=== PATIENT | female | born 1990 | race Caucasian/White ===

== ENCOUNTER 2017-12-31 17:11 | Emergency (ER) | payer BC ==
[2017-12-31] MEDS ORDERED: Haloperidol Lactate 5 MG/ML SDV IVPUSH ONE (18:03)
[2017-12-31] MEDS ORDERED: diphenhydrAMINE 50 MG/ML SDV IVPUSH ONE (18:03)
[2017-12-31] MEDS ORDERED: Ondansetron 4 MG/2 ML SDV IVPUSH ONE (18:03)
[2017-12-31] MEDS ORDERED: Sodium Chloride 0.9% 1,000 ML IV ONE (18:03)
[2017-12-31] MEDS ORDERED: Sodium Chloride 0.9% 10 ML Syringe FLUSH PRN (18:03)
--- NOTE | 2017-12-31 18:14 | EDM.PDOC ---
ED HPI GENERAL MEDICAL PROBLEM - General Chief Complaint: Headache Stated Complaint: MIGRAINE,DIZZY W/NAUSEA Time Seen by Provider: 12/31/17 17:40 Source of Information: Reports: Patient History Limitations: Reports: No Limitations - History of Present Illness INITIAL COMMENTS - FREE TEXT/NARRATIVE: Patient is a 27-year-old female who presents ED complaining of migraine headache with intermittent dizziness for the past hour. She has a history of migraines and notes that headache today is different from previous episodes. Patient does not recall any recent trauma to the head or activities requiring heavy exertion. Headache was sudden with onset. Pain is located bitemporal worse on the left side described as her head is in a vice. Throbbing in nature waxes wanes in intensity. States she has some pressure to the back of her head and also mild stiff neck present. She is experiencing photophobia along with some hyperacusis. She complains of some bilateral ear discomfort with onset of headache. She has been crying ever since onset and thus is quite congested. There is no vision changes, n/t to extremities, difficulty in walking, or any additional complains. She is mildly nauseated. She denies being . She has a history of anxiety and was previously medicated to which she discontinued her own accord. She did ambulate into the ED on her own accord. Headache Pain Score (Numeric/FACES): 10 - Related Data Allergies Allergy/AdvReac Type Severity Reaction Status Date / Time No Known Allergies Allergy Verified 12/31/17 17:18 Home Meds: Home Meds . [No Known Home Meds] 12/31/17 [History] Past Medical History HEENT History: Reports: None Gastrointestinal History: Reports: None Neurological History: Reports: Migraines Psychiatric History: Reports: Anxiety - Past Surgical History HEENT Surgical History: Reports: Myringotomy w Tube(s), Tonsillectomy GI Surgical History: Reports: Appendectomy Social & Family History - Family History Family Medical History: Noncontributory - Tobacco Use Smoking Status *Q: Never Smoker - Caffeine Use Caffeine Use: Reports: Coffee, Tea - Recreational Drug Use Recreational Drug Use: No ED ROS GENERAL - Review of Systems Review Of Systems: See Below Constitutional: Reports: Decreased Appetite. Denies: Fever, Chills HEENT: Reports: Other (Photophobia, hyperacusis, bilaterally ear pain) Respiratory: Reports: No Symptoms Cardiovascular: Reports: No Symptoms GI/Abdominal: Reports: Nausea. Denies: Abdominal Pain, Vomiting : Reports: No Symptoms Musculoskeletal: Reports: Neck Pain (Mild stiff neck) Skin: Reports: No Symptoms Neurological: Reports: Headache. Denies: Confusion, Dizziness, Numbness, Syncope, Tingling, Difficulty Walking, Gait Disturbance Psychiatric: Reports: Other (Tearful) - Physical Exam Exam: See Below Exam Limited By: No Limitations General Appearance: Alert, WD/WN, Other (Crying) Eye Exam: Bilateral Eye: EOMI, Nystagmus (None found), PERRL Ears: Normal External Exam, Normal Canal, Hearing Grossly Normal, Normal TMs Nose: Normal Inspection Throat/Mouth: Normal Inspection, Normal Oropharynx, Normal Voice, No Airway Compromise Head Exam: Atraumatic, Normocephalic, Other (Tenderness noted along the left side of the face and left side of the scalp with palpation.) Neck: Normal Inspection, Supple, Non-Tender, Full Range of Motion Respiratory/Chest: No Respiratory Distress, Lungs Clear, Normal Breath Sounds, No Accessory Muscle Use, Chest Non-Tender Cardiovascular: Normal Peripheral Pulses, Regular Rate, Rhythm GI/Abdominal: Normal Bowel Sounds, Soft, Non-Tender, No Organomegaly, No Distention Neuro Exam (Abbreviated): Alert, Oriented, CN II-XII Intact, Normal Cognition, No Motor/Sensory Deficits, Other (Cerebellar function intact including: Finger- nose, rapid alternating movements, and [id number]. No weakness discrepancy's to the upper and lower extremities. No facial droop, slurred speech, or difficulty swallow.) Back Exam: Normal Inspection Extremities: Normal Inspection, Normal Range of Motion, Non-Tender, Normal Capillary Refill Psychiatric: Normal Affect, Tearful Skin Exam: Warm, Dry, Intact, Normal Color, No Rash Course - Vital Signs Last Recorded V/S: Last Vital Signs Temp 98.8 F 12/31/17 17: Pulse 86 12/31/17 17: Resp 14 12/31/17 17:19 BP 147/88 H 12/31/17 17:19 Pulse Ox - Orders/Labs/Meds Labs: Laboratory Tests 12/31/17 12/31/17 12/31/17 Range/Units 18:25 18:25 18:25 WBC 9.91 (3.98-10.04) K/mm3 RBC 4.55 (3.98-5.22) M/mm3 Hgb 13.4 (11.2-15.7) gm/L Hct 41.0 (34.1-44.9) % MCV 90.1 (79.4-94.8) fl MCH 29.5 (25.6-32.2) pg MCHC 32.7 (32.2-35.5) g/dl RDW Std Deviation 41.2 (36.4-46.3) fL Plt Count 280 (182-369) K/mm3 MPV 9.2 L (9.4-12.3) fl Neut % (Auto) 67.6 (34.0-71.1) % Lymph % (Auto) 25.1 (19.3-51.7) % [place] % (Auto) 6.3 (4.7-12.5) % Eos % (Auto) 0.6 L (0.7-5.8) Baso % (Auto) 0.3 (0.1-1.2) % Neut # (Auto) 6.70 H (1.56-6.13) K/mm3 Lymph # (Auto) 2.49 (1.18-3.74) K/mm3 [place] # (Auto) 0.62 H (0.24-0.36) K/mm3 Eos # (Auto) 0.06 (0.04-0.36) K/mm3 Baso # (Auto) 0.03 (0.01-0.08) K/mm3 ESR 19 (0-20) mm/hr Sodium 140 (136-145) mEq/L Potassium 3.6 (3.5-5.1) mEq/L Chloride 105 (98-107) mEq/L Carbon Dioxide 25 (21-32) mEq/L Anion Gap 13.6 (5-15) BUN 9 (7-18) mg/dL Creatinine 0.7 (0.55-1.02) mg/dL Est Cr Clr Drug Dosing 133.73 mL/min Estimated GFR (MDRD) > 60 (>60) mL/min BUN/Creatinine Ratio 12.9 L (14-18) Glucose 80 (74-106) mg/dL Calcium 9.3 (8.5-10.1) mg/dL Total Bilirubin 0.2 (0.2-1.0) mg/dL AST 14 L (15-37) U/L ALT 22 (14-59) U/L Alkaline Phosphatase 68 (46-116) U/L C-Reactive Protein 1.9 H* (<1.0) mg/dL Total Protein 7.6 (6.4-8.2) g/dl Albumin 3.9 (3.4-5.0) g/dl Globulin 3.7 gm/dL Albumin/Globulin Ratio 1.1 (1-2) Urine HCG, Qual (NEGATIVE) 12/31/17 Range/Units 18:25 WBC (3.98-10.04) K/mm3 RBC (3.98-5.22) M/mm3 Hgb (11.2-15.7) gm/L Hct (34.1-44.9) % MCV (79.4-94.8) fl MCH (25.6-32.2) pg MCHC (32.2-35.5) g/dl RDW Std Deviation (36.4-46.3) fL Plt Count (182-369) K/mm3 MPV (9.4-12.3) fl Neut % (Auto) (34.0-71.1) % Lymph % (Auto) (19.3-51.7) % [place] % (Auto) (4.7-12.5) % Eos % (Auto) (0.7-5.8) Baso % (Auto) (0.1-1.2) % Neut # (Auto) (1.56-6.13) K/mm3 Lymph # (Auto) (1.18-3.74) K/mm3 [place] # (Auto) (0.24-0.36) K/mm3 Eos # (Auto) (0.04-0.36) K/mm3 Baso # (Auto) (0.01-0.08) K/mm3 ESR (0-20) mm/hr Sodium (136-145) mEq/L Potassium (3.5-5.1) mEq/L Chloride (98-107) mEq/L Carbon Dioxide (21-32) mEq/L Anion Gap (5-15) BUN (7-18) mg/dL Creatinine (0.55-1.02) mg/dL Est Cr Clr Drug Dosing mL/min Estimated GFR (MDRD) (>60) mL/min BUN/Creatinine Ratio (14-18) Glucose (74-106) mg/dL Calcium (8.5-10.1) mg/dL Total Bilirubin (0.2-1.0) mg/dL AST (15-37) U/L ALT (14-59) U/L Alkaline Phosphatase (46-116) U/L C-Reactive Protein (<1.0) mg/dL Total Protein (6.4-8.2) g/dl Albumin (3.4-5.0) g/dl Globulin gm/dL Albumin/Globulin Ratio (1-2) Urine HCG, Qual Negative (NEGATIVE) Meds: Medications Discontinued Medications Generic Name Dose Route Start Last Admin Trade Name Freq PRN Reason Stop Dose Admin Diphenhydramine HCl 50 mg 12/31/17 18:03 12/31/17 18:25 Benadryl IVPUSH 12/31/17 18:04 50 mg ONETIME ONE Administration Haloperidol Lactate 7.5 mg 12/31/17 18:03 12/31/17 18:26 Haldol IVPUSH 12/31/17 18:04 7.5 mg ONETIME ONE Administration Sodium Chloride 1,000 mls @ 999 mls/hr 12/31/17 18:03 12/31/17 18:23 Normal Saline IV 12/31/17 19:03 999 mls/hr ONETIME ONE Administration Ondansetron HCl 4 mg 12/31/17 18:03 12/31/17 18:23 Zofran IVPUSH 12/31/17 18:04 4 mg ONETIME ONE Administration Sodium Chloride 10 ml 12/31/17 18:03 12/31/17 18:25 Saline Flush FLUSH 10 ml ASDIRECTED PRN Administration Keep Vein Open - Re-Assessments/Exams Free Text/Narrative Re-Assessment/Exam: IV established with normal saline 1 L bolus, haloperidol 7.5 mg IVP, Benadryl 50 mg IVP and also Zofran for IVP. Initial labs and studies include CBC, chem 14 , hCG, ESR. Patient will require CT of the head since she describes as quite severe, sudden onset, with different signs and symptoms from previous headaches. Will await for hCG per patient's request. Patient did get up to go to the bathroom prior to starting the IV. She ambulated with no issues. Crying discontinued. She did not appear to be in acute distress. 12/31/17 18:59 HCG was negative. Labs reviewed: CBC and chemistry panel essentially normal. ESR was within normal limits. CRP mildly elevated at 1.9. 12/31/17 19:41 Reassessment, patient's symptoms have drastically improved with the above therapies. She has no headache at this point. CT of the head has not been obtained. She is requesting to be discharged home. I informed her unclear why she had a sudden onset of severe headache to the left side. This is not following her previous pattern of previous migraines. I did inform her although low likelihood there may be some intracranial abnormalities precipitating this headache such as a head bleed that may progressively worsen without identification. Again this is low probability largely in part all symptoms were essentially relieved with the above therapies. Patient and voice understanding and wish to be discharged home. Head CT canceled. Departure - Departure Time of Disposition: 19:43 Disposition: Home, Self-Care 01 Condition: Good Clinical Impression: Tension-type headache - Discharge Information Instructions: Recurrent Migraine Headache, [id number], General Headache Without Cause, [id number] Referrals: Angelia Love PA-C [Primary Care Provider] - Forms: ED Department Discharge Additional Instructions: Go home and find a dark room with no distractions to sleep. Again unclear what precipitated this sudden headache that was different from previous episodes. Will have you monitor for any new or worsening symptoms. Take Tylenol and ibuprofen in alternating fashion for pain. If at any time you develop any new or worsening symptoms please return to the ED for reevaluation. Again cannot clarify why this headache is different than previous migraines. It is concerning thus close monitoring is required.
== END 2017-12-31 19:55 | disposition home or self-care (01) ==
LOC: JD.ED 17:11
DX: G44.209 Tension-type headache, unspecified, not intractable (principal)
CPT/HCPCS: 36415; 80053; 81025; 85025; 85652; 86140; 96361; 96374; 96375; 99284; J1200; J1630; J2405; J7040; J7050

== ENCOUNTER 2019-01-12 10:55 | Emergency (ER) | payer BC ==
--- NOTE | 2019-01-12 11:29 | EDM.PDOC ---
ED HPI GENERAL MEDICAL PROBLEM - General Chief Complaint: Back Pain or Injury Stated Complaint: BACK PAIN Time Seen by Provider: 01/12/19 11:14 Source of Information: Reports: Patient, RN Notes Reviewed History Limitations: Reports: No Limitations - History of Present Illness INITIAL COMMENTS - FREE TEXT/NARRATIVE: Patient is a 28 year old female who presents to the ED for the evaluation of acute onset lower back pain. She states that she was at coffee break yesterday around 8 or 9 AM when she sneezed and then felt instant back pain. She notes this to be sudden with pressure and stabbing qualities. This is located in her lower back and initially radiated to her left leg, but today she states that she feels it in both of her legs. She notes the pain to be a 10/10. She denies any bowel/bladder dysfunction or loss of ROM in her legs. She did go to the chiropractor this AM and he did a TENS unit, reflexology, and ice massage with her and this did not provide much relief. She states that she has an MRI scheduled tomorrow, but cannot recall who this is with. She took 2 tabs of aleve yesterday and 2 tabs of advil this morning, both of which provided little relief. She denies any previous trauma to the area. Lower Back Pain Score (Numeric/FACES): 10 - Related Data Allergies Allergy/AdvReac Type Severity Reaction Status Date / Time No Known Allergies Allergy Verified 12/31/17 17:18 Home Meds: Home Meds Omeprazole Magnesium [Prilosec Otc] 20 mg PO DAILY 01/12/19 [History] Past Medical History HEENT History: Reports: None Gastrointestinal History: Reports: GERD Neurological History: Reports: Migraines Psychiatric History: Reports: Anxiety - Past Surgical History HEENT Surgical History: Reports: Myringotomy w Tube(s), Tonsillectomy GI Surgical History: Reports: Appendectomy, Other (See Below) Other GI Surgeries/Procedures: Barrets esophagitis Social & Family History - Family History Family Medical History: Noncontributory - Tobacco Use Smoking Status *Q: Never Smoker - Caffeine Use Caffeine Use: Reports: Coffee - Recreational Drug Use Recreational Drug Use: No ED ROS GENERAL - Review of Systems Review Of Systems: See Below Constitutional: Reports: No Symptoms HEENT: Reports: No Symptoms Respiratory: Reports: No Symptoms Cardiovascular: Reports: No Symptoms Endocrine: Reports: No Symptoms GI/Abdominal: Reports: No Symptoms : Reports: No Symptoms Musculoskeletal: Reports: Back Pain (low back pain with radiation to R/L legs), Other (muscle spasms) Skin: Reports: No Symptoms Neurological: Reports: No Symptoms Psychiatric: Reports: No Symptoms Hematologic/Lymphatic: Reports: No Symptoms Immunologic: Reports: No Symptoms ED EXAM,LOWER BACK PAIN/INJURY - Physical Exam Exam: See Below Exam Limited By: No Limitations General Appearance: Alert, WD/WN, Mild Distress (pt is laying almost supine and is tearful upon initial presentation.) Eye Exam: Bilateral Eye: EOMI, Normal Inspection, PERRL Ears: Normal External Exam Nose: Normal Inspection Throat/Mouth: Normal Inspection, Normal Lips, Normal Oropharynx, Normal Voice, No Airway Compromise Head: Atraumatic, Normocephalic Neck: Normal Inspection, Supple, Non-Tender, Full Range of Motion Respiratory/Chest: No Respiratory Distress, Lungs Clear, Normal Breath Sounds, No Accessory Muscle Use, Chest Non-Tender Cardiovascular: Normal Peripheral Pulses, Regular Rate, Rhythm, No Murmur GI/Abdominal: Normal Bowel Sounds, Soft, Non-Tender, No Distention, No Mass Back Exam: Normal Inspection, Decreased Range of Motion (exam is limited d/t pain, muscle strength is WNL), Muscle Spasm Extremities: Normal Inspection, Normal Capillary Refill, Limited Range of Motion (bilateral lower extremities, d/t pain ) Neurological: Alert, Normal Mood/Affect, Normal Dorsiflexion, Normal Plantar Flexion, No Motor/Sensory Deficits, Oriented x 3. No: Saddle Anesthesia Psychiatric: Normal Affect, Normal Mood Skin Exam: Warm, Dry, Intact, Normal Color Course - Vital Signs Last Recorded V/S: Last Vital Signs Temp Pulse 71 01/12/19 11:08 Resp 16 01/12/19 11:08 BP 143/83 H 01/12/19 11:08 Pulse Ox 98 01/12/19 11:08 - Orders/Labs/Meds Meds: Medications Discontinued Medications Generic Name Dose Route Start Last Admin Trade Name Freq PRN Reason Stop Dose Admin Ketorolac Tromethamine 30 mg 01/12/19 11:36 01/12/19 11:42 Toradol IM 01/12/19 11:37 30 mg ONETIME ONE Administration Orphenadrine Citrate 100 mg 01/12/19 11:36 01/12/19 11:42 Norflex PO 01/12/19 11:37 100 mg ONETIME ONE Administration Tramadol HCl 50 mg 01/12/19 12:39 01/12/19 12:42 Ultram PO 01/12/19 12:40 50 mg ONETIME ONE Administration - Re-Assessments/Exams Free Text/Narrative Re-Assessment/Exam: 01/12/19 11:47 Pt presents to the ED for the evaluation of acute onset lower back pain. She states that she has an MRI tomorrow, so no imaging will be done today. Have ordered 100mg Norflex and 30mg IM Toradol for initial pain management. 01/12/19 12:46 Pt was re-assessed at bedside and states that the pain is still present. I have ordered 50mg PO Tramadol to see if this doesn't provide some relief. Departure - Departure Time of Disposition: 13:48 Disposition: Home, Self-Care 01 Condition: Fair Clinical Impression: Low back pain Qualifiers: Chronicity: acute Back pain laterality: bilateral Sciatica presence: unspecified whether sciatica present Qualified Code(s): M54.5 - Low back pain - Discharge Information *PRESCRIPTION DRUG MONITORING PROGRAM REVIEWED*: No *COPY OF PRESCRIPTION DRUG MONITORING REPORT IN PATIENT JEANINE: No Instructions: Pain Medicine Instructions, [id number] Referrals: Whitney Vasquez MD [Primary Care Provider] - Forms: ED Department Discharge Additional Instructions: You have been evaluated in the ED for your lower back pain. Please use ice/heat as tolerated to the affected area. You may take tylenol 500 mg or ibuprofen 600mg q6 hrs for pain relief. Please do so until you have a tolerable level of pain with activity. Do not exceed 4000mg tylenol in one day. Do not exceed 3200mg ibuprofen in one day. Please take the tramadol every 6 hours as needed for pain that is not relieved by the tylenol/ibuprofen alone. Please take the Norflex BID for muscle spasms. Please take it easy for the next few days and please keep your appointment for your MRI tomorrow. Please return to ED if your symptoms should change or worsen.
[2019-01-12] MEDS ORDERED: Ketorolac 30 MG/ML SDV IM ONE (11:36)
[2019-01-12] MEDS ORDERED: Orphenadrine 100 MG Tab.ER PO ONE (11:36)
[2019-01-12] MEDS ORDERED: traMADol 50 MG Tab PO ONE (12:39)
== END 2019-01-12 14:05 | disposition home or self-care (01) ==
LOC: JD.ED 10:55
DX: M54.5 Low back pain (principal); K21.9 Gastro-esophageal reflux disease without esophagitis; Z79.899 Other long term (current) drug therapy
CPT/HCPCS: 96372; 99283; A9270; J1885

== ENCOUNTER 2019-09-10 14:35 | Inpatient (IN) | payer BC ==
[2019-09-10] MEDS ORDERED: Nalbuphine 10 MG/1 ML Vial IVPUSH PRN (14:50)
[2019-09-10] MEDS ORDERED: Sodium Chloride 0.9% 10 ML Syringe FLUSH PRN (14:50)
[2019-09-10] MEDS ORDERED: Lidocaine 1% 50 ML MDV INJECT ONE (14:50)
[2019-09-10] MEDS ORDERED: Ondansetron 4 MG/2 ML SDV IVPUSH PRN (14:50)
[2019-09-10] MEDS ORDERED: Oxytocin/Lactated Ringers 10 UNIT/1,000 ML BAG IV SCH ×2 (15:00)
[2019-09-10] MEDS: Lactated Ringers 1,000 ML IV SCH ×3 (15:23→23:01)
[2019-09-10] MEDS ORDERED: fentaNYL/Bupivacaine in NS PF 2 MCG-0.125% 250 ML Premix EPIDUR PRN (16:30)
[2019-09-10] MEDS ORDERED: diphenhydrAMINE 50 MG/ML SDV IVPUSH PRN (16:30)
[2019-09-10] MEDS ORDERED: fentaNYL 100 MCG/2 ML SDV EPIDUR PRN (16:30)
[2019-09-10] MEDS ORDERED: ePHEDrine 50 MG/ML SDV IVPUSH PRN (16:30)
--- NOTE | 2019-09-10 16:35 | PCM.PREANE ---
Preanesthetic Assessment - Anesthesia/Transfusion/Family Hx Anesthesia History: Prior Anesthesia Without Reaction Family History of Anesthesia Reaction: No Transfusion History: No Prior Transfusion(s) - Review of Systems General: No Symptoms Pulmonary: No Symptoms Cardiovascular: No Symptoms Gastrointestinal: No Symptoms Neurological: Headache (Migraines), Pre-Existing Deficit (Intense back pain in December, consulted a surgeon, L5-S1 Disc space narrowing, L4-5 Disc Buldge. ) Other: Reports: None - Physical Assessment Vital Signs: Last Vital Signs Temp 36.7 C 09/10/19 14:50 Pulse 99 09/10/19 14:50 Resp 16 09/10/19 14:50 BP 138/77 09/10/19 14:50 Pulse Ox 97 09/10/19 14:50 Height: 1.8 m Weight: 122.924 kg ASA Class: 2 Mental Status: Alert & Oriented x3 Airway Class: Mallampati = 2 Dentition: Reports: Normal Dentition Thyro-Mental Finger Breadths: 3 Mouth Opening Finger Breadths: 3 ROM/Head Extension: Full Lungs: Clear to Auscultation, Normal Respiratory Effort Cardiovascular: Regular Rate, Regular Rhythm - Lab Values: Laboratory Last Values WBC 11.71 K/mm3 (3.98-10.04) H 09/10/19 15:12 RBC 3.90 M/mm3 (3.98-5.22) L 09/10/19 15:12 Hgb 11.4 gm/dl (11.2-15.7) D 09/10/19 15:12 Hct 35.1 % (34.1-44.9) 09/10/19 15:12 MCV 90.0 fl (79.4-94.8) 09/10/19 15:12 MCH 29.2 pg (25.6-32.2) 09/10/19 15:12 MCHC 32.5 g/dl (32.2-35.5) 09/10/19 15:12 RDW Std Deviation 43.9 fL (36.4-46.3) 09/10/19 15:12 Plt Count 254 K/mm3 (182-369) 09/10/19 15:12 MPV 9.3 fl (9.4-12.3) L 09/10/19 15:12 - Allergies Allergies/Adverse Reactions: Allergies Allergy/AdvReac Type Severity Reaction Status Date / Time No Known Allergies Allergy Verified 12/31/17 17:18 - Acknowledgements Anesthesia Type Planned: Epidural Pt an Appropriate Candidate for the Planned Anesthesia: Yes Alternatives and Risks of Anesthesia Discussed w Pt/Guardian: Yes Pt/Guardian Understands and Agrees with Anesthesia Plan: Yes Additional Comments: Alyse does understand the risks of an epidural. She is aware she could have increased back pain from the epidural placement. Currently she has no back pain symptoms. Her back pain was triggered by a sneeze and resolved with chiropractic and physical therapy. PreAnesthesia Questionnaire HEENT History: Reports: None Gastrointestinal History: Reports: None Neurological History: Reports: Migraines Psychiatric History: Reports: Anxiety, Depression - Infectious Disease History Infectious Disease History: Reports: None - Past Surgical History HEENT Surgical History: Reports: Myringotomy w Tube(s), Tonsillectomy, Other ( See Below) Other HEENT Surgeries/Procedures: wisdom teeth extraction 2008 GI Surgical History: Reports: Appendectomy - SUBSTANCE USE Smoking Status *Q: Never Smoker Tobacco Use Within Last Twelve Months: No Second Hand Smoke Exposure: No Recreational Drug Use History: No - HOME MEDS Home Medications: Home Meds Omeprazole Magnesium [Prilosec Otc] 20 mg PO DAILY 01/12/19 [History] Orphenadrine [Norflex] 100 mg PO BID PRN #20 tab 01/12/19 [Rx] traMADol [Ultram] 50 mg PO Q6H PRN #28 tablet 01/12/19 [Rx] - CURRENT (IN HOUSE) MEDS Current Meds: Current Medications Lactated Ringer's (Ringers, Lactated) 1,000 mls @ 100 mls/hr IV ASDIRECTED RACH Last Admin: 09/10/19 15:23 Dose: 100 mls/hr Oxytocin/Lactated Ringer's (Pitocin In Lr 10 Units/1,000 Ml) 10 unit in 1,000 mls @ 500 mls/hr IV ASDIRECTED RACH; Protocol Oxytocin/Lactated Ringer's (Pitocin In Lr 10 Units/1,000 Ml) 10 unit in 1,000 mls @ 12 mls/hr IV TITRATE RACH; Protocol Last Titration: 09/10/19 15:49 Dose: 4 munits/min, 24 mls/hr Nalbuphine HCl (Nubain) 10 mg IVPUSH Q2H PRN PRN Reason: Pain Ondansetron HCl (Zofran) 4 mg IVPUSH Q4H PRN PRN Reason: Nausea/Vomiting Sodium Chloride (Saline Flush) 10 ml FLUSH ASDIRECTED PRN PRN Reason: Keep Vein Open Discontinued Medications Lidocaine HCl (Xylocaine 1%) 50 ml INJECT ONETIME ONE Stop: 09/10/19 14:51
--- NOTE | 2019-09-10 17:42 | PCM.LDHP ---
L&D History of Present Illness - General Date of Service: 09/10/19 Admit Problem/Dx: Patient Status Order with Admit Dx/Problem 09/10/19 14:50 Patient Status [ADT] Routine Admission Diagnosis/Problem Admission Diagnosis/Problem Labor established Source of Information: Patient History Limitations: Reports: No Limitations - History of Present Illness Introduction:: Patient is a 28 y/o at 37 4/7 wks gestation who presents with SROM. Early this AM thought she had a small gush of fluid, this was around 0600 or so. Afterwards has had a small persistent dribble of fluid. Seen in clinic where an amnisure was done and positive. Notes mild contractions. No other concerns - Related Data Allergies/Adverse Reactions: Allergies Allergy/AdvReac Type Severity Reaction Status Date / Time No Known Allergies Allergy Verified 09/10/19 20:08 Home Medications: Home Meds Vits #93/Iron Fum/FA [ Formula Tablet] 1 each PO DAILY [History] Past Medical History DIRECTOR ZONE History: Reports: : 1 Para: 0 Neurological History: Reports: Migraines Psychiatric History: Reports: Anxiety, Depression - Past Surgical History HEENT Surgical History: Reports: Myringotomy w Tube(s), Oral Surgery, Tonsillectomy Other HEENT Surgeries/Procedures: wisdom teeth extraction 2008 GI Surgical History: Reports: Appendectomy, Colonoscopy, EGD Social & Family History - Family History Family Medical History: Noncontributory - Tobacco Use Smoking Status *Q: Never Smoker Second Hand Smoke Exposure: No - Caffeine Use Caffeine Use: Reports: Coffee - Alcohol Use Alcohol Use History: No - Recreational Drug Use Recreational Drug Use: No H&P Review of Systems - Review of Systems: Review Of Systems: See Below General: Reports: No Symptoms Pulmonary: Reports: No Symptoms Cardiovascular: Reports: No Symptoms Gastrointestinal: Reports: No Symptoms Genitourinary: Reports: No Symptoms Musculoskeletal: Reports: No Symptoms Psychiatric: Reports: No Symptoms Neurological: Reports: No Symptoms L&D Exam - Exam Exam: See Below - Vital Signs Vital Signs: Last Vital Signs Temp 36.7 C 09/10/19 14:50 Pulse 99 09/10/19 14:50 Resp 16 09/10/19 14:50 BP 138/77 09/10/19 14:50 Pulse Ox 97 09/10/19 14:50 Weight: 122.924 kg - OB Specific Contraction Intensity: Mild Movement: Active Heart Tones: Present Heart Tones per Min: 130 Heart Rate (FHR) Variability: Moderate (6-25 bmp) Presentation: Vertex - Garcia Score Garcia Score Cervix Position: Midposition Garcia Score Consistency: Soft Garcia Score Effacement: 51-70% Garcia Score Dilation: 1-2 cm Garcia Score 's Station: -2 Garcia Score Total: 7 - Exam General: Alert, Oriented, Cooperative Lungs: Clear to Auscultation, Normal Respiratory Effort Cardiovascular: Regular Rate, Regular Rhythm GI/Abdominal Exam: Soft, Non-Tender Genitourinary: Normal external exam Extremities: Normal Inspection Skin: Warm, Dry, Intact - Patient Data Lab Results Last 24 hrs: Laboratory Results - last 24 hr 09/10/19 Range/Units 15:12 WBC 11.71 H (3.98-10.04) K/mm3 RBC 3.90 L (3.98-5.22) M/mm3 Hgb 11.4 D (11.2-15.7) gm/dl Hct 35.1 (34.1-44.9) % MCV 90.0 (79.4-94.8) fl MCH 29.2 (25.6-32.2) pg MCHC 32.5 (32.2-35.5) g/dl RDW Std Deviation 43.9 (36.4-46.3) fL Plt Count 254 (182-369) K/mm3 MPV 9.3 L (9.4-12.3) fl Result Diagrams: 09/10/19 15:12 - Problem List (1) 37 weeks gestation of SNOMED Code(s): 05998698 ICD Code: Z3A.37 - 37 WEEKS GESTATION OF Status: Acute Current Visit: Yes (2) SROM (spontaneous rupture of membranes) SNOMED Code(s): 088977271 ICD Code: [id number] - Status: Acute Current Visit: Yes (3) Abnormal quad screen SNOMED Code(s): 041981549, 854211311 ICD Code: O28.0 - ABNORMAL HEMATOLOG FINDING ON SCREENING OF MOTHER Status: Acute Current Visit: Yes Problem List Initiated/Reviewed/Updated: Yes Orders Last 24hrs: Active Orders 24 hr Category Date Time Status Patient Status [ADT] Routine ADT 09/10/19 14:50 Active Activity as Tolerated [RC] PFP Care 09/10/19 14:50 Active Communication Order [RC] ASDIRECTED Care 09/10/19 14:50 Active Notify Provider [RC] ASDIRECTED Care 09/10/19 16:30 Active Notify Provider [RC] PFP Care 09/10/19 14:50 Active Notify Provider [RC] PRN Care 09/10/19 14:50 Active Peripheral IV Care [RC] . DIRECTED Care 09/10/19 14:51 Active Vital Signs [RC] PER UNIT ROUTINE Care 09/10/19 14:50 Active Regular Diet [DIET] Diet 09/10/19 Dinner Active RAPID PLASMA REAGIN,RPR [CHEM] Routine Lab 09/10/19 15:12 Received Bupivicaine/fentaNYL/NS [fentaNYL/Bupivacaine/NS 2 MCG- Med 09/10/19 16:30 Active 0.125% 250 ML] 2 mcg EPIDUR CONTINUOUS PRN Lactated Ringers [Ringers, Lactated] 1,000 ml Med 09/10/19 15:00 Active IV ASDIRECTED Nalbuphine [Nubain] Med 09/10/19 14:50 Active 10 mg IVPUSH Q2H PRN Ondansetron [Zofran] Med 09/10/19 14:50 Active 4 mg IVPUSH Q4H PRN Oxytocin/Lactated Ringers [Pitocin in LR 10 Units/1,000 Med 09/10/19 15:00 Active ML] 10 unit in 1,000 ml IV ASDIRECTED Oxytocin/Lactated Ringers [Pitocin in LR 10 Units/1,000 Med 09/10/19 15:00 Active ML] 10 unit in 1,000 ml IV TITRATE Sodium Chloride 0.9% [Saline Flush] Med 09/10/19 14:50 Active 10 ml FLUSH ASDIRECTED PRN diphenhydrAMINE [Benadryl] Med 09/10/19 16:30 Active 25 mg IVPUSH Q6H PRN ePHEDrine [ePHEDrine sulfate] Med 09/10/19 16:30 Active 5 mg IVPUSH ASDIRECTED PRN fentaNYL [Sublimaze] Med 09/10/19 16:30 Active 100 mcg EPIDUR Q3H PRN Electronic Heart Tones Ext w TOCO [WOMSER] Oth 09/10/19 14:50 Ordered Routine Electronic Heart Tones Internal [WOMSER] Per Unit Oth 09/10/19 14:50 Ordered Routine Peripheral IV Insertion Adult [OM.PC] Routine Oth 09/10/19 14:50 Ordered Resuscitation Status Routine Resus Stat 09/10/19 14:50 Ordered Medication Orders Diphenhydramine HCl (Benadryl) 25 mg IVPUSH Q6H PRN PRN Reason: pruritis Ephedrine Sulfate (Ephedrine Sulfate) 5 mg IVPUSH ASDIRECTED PRN PRN Reason: Hypotension Fentanyl (Sublimaze) 100 mcg EPIDUR Q3H PRN PRN Reason: Pain Fentanyl/Bupivacaine HCl (Fentanyl/Bupivacaine/Ns 2 Mcg-0.125% 250 Ml) 2 mcg EPIDUR CONTINUOUS PRN PRN Reason: Pain Lactated Ringer's (Ringers, Lactated) 1,000 mls @ 100 mls/hr IV ASDIRECTED RACH Last Admin: 09/10/19 15:23 Dose: 100 mls/hr Oxytocin/Lactated Ringer's (Pitocin In Lr 10 Units/1,000 Ml) 10 unit in 1,000 mls @ 500 mls/hr IV ASDIRECTED RACH; Protocol Oxytocin/Lactated Ringer's (Pitocin In Lr 10 Units/1,000 Ml) 10 unit in 1,000 mls @ 12 mls/hr IV TITRATE RACH; Protocol Last Titration: 09/10/19 17:41 Dose: 10 munits/min, 60 mls/hr Titration: 09/10/19 17:11 Dose: 8 munits/min, 48 mls/hr Titration: 09/10/19 16:43 Dose: 6 munits/min, 36 mls/hr Titration: 09/10/19 15:49 Dose: 4 munits/min, 24 mls/hr Admin: 09/10/19 15:24 Dose: 2 munits/min, 12 mls/hr Nalbuphine HCl (Nubain) 10 mg IVPUSH Q2H PRN PRN Reason: Pain Ondansetron HCl (Zofran) 4 mg IVPUSH Q4H PRN PRN Reason: Nausea/Vomiting Sodium Chloride (Saline Flush) 10 ml FLUSH ASDIRECTED PRN PRN Reason: Keep Vein Open Assessment/Plan Comment:: * Labs * GBS negative * Start pitocin for augmentation * Pain management per patient preference * Anticipate
[2019-09-10] MEDS ORDERED: Oxytocin/Lactated Ringers 20 UNIT/1,000 ML BAG IV SCH ×2 (20:15→21:00)
--- NOTE | 2019-09-10 22:39 | PCM.PNLD ---
Labor Progress Note - VS & Meds Vital Signs: Last Vital Signs Temp 36.7 C 09/10/19 14:50 Pulse 99 09/10/19 14:50 Resp 16 09/10/19 14:50 BP 138/77 09/10/19 14:50 Pulse Ox 97 09/10/19 14:50 Active Medications: Current Medications Diphenhydramine HCl (Benadryl) 25 mg IVPUSH Q6H PRN PRN Reason: pruritis Ephedrine Sulfate (Ephedrine Sulfate) 5 mg IVPUSH ASDIRECTED PRN PRN Reason: Hypotension Fentanyl (Sublimaze) 100 mcg EPIDUR Q3H PRN PRN Reason: Pain Last Admin: 09/10/19 22:15 Dose: 100 mcg Fentanyl/Bupivacaine HCl (Fentanyl/Bupivacaine/Ns 2 Mcg-0.125% 250 Ml) 2 mcg EPIDUR CONTINUOUS PRN PRN Reason: Pain Last Admin: 09/10/19 22:15 Dose: 2 mcg Lactated Ringer's (Ringers, Lactated) 1,000 mls @ 100 mls/hr IV ASDIRECTED RACH Last Admin: 09/10/19 22:13 Dose: 999 mls/hr Oxytocin/Lactated Ringer's (Pitocin In Lr 10 Units/1,000 Ml) 10 unit in 1,000 mls @ 500 mls/hr IV ASDIRECTED RACH; Protocol Oxytocin/Lactated Ringer's (Pitocin In Lr 10 Units/1,000 Ml) 10 unit in 1,000 mls @ 12 mls/hr IV TITRATE RACH; Protocol Last Titration: 09/10/19 20:35 Dose: 20 munits/min, 120 mls/hr Oxytocin/Lactated Ringer's (Pitocin In Lr 20 Units/1,000 Ml) 20 unit in 1,000 mls @ 66 mls/hr IV TITRATE RACH; Protocol Last Admin: 09/10/19 21:12 Dose: 66 mls/hr Nalbuphine HCl (Nubain) 10 mg IVPUSH Q2H PRN PRN Reason: Pain Ondansetron HCl (Zofran) 4 mg IVPUSH Q4H PRN PRN Reason: Nausea/Vomiting Sodium Chloride (Saline Flush) 10 ml FLUSH ASDIRECTED PRN PRN Reason: Keep Vein Open Discontinued Medications Oxytocin/Lactated Ringer's (Pitocin In Lr 20 Units/1,000 Ml) 20 unit in 1,000 mls @ 66 mls/hr IV TITRATE RACH; Protocol Lidocaine HCl (Xylocaine 1%) 50 ml INJECT ONETIME ONE Stop: 09/10/19 14:51 - Uterine Contractions Uterine Monitoring Mode: External Mize Contraction Intensity: Moderate to Strong - Monitoring Monitor Mode: External Ultrasound Heart Rate (FHR) Baseline: 130 Heart Rate (FHR) Variability: Moderate (6-25 bmp) Accelerations: Present, 15x15 Decelerations: None Strip Review: Category I - Vaginal Exam Dilation (cm): 4 Effacement (Percent): 80 Station: 0 Cervical Position: Anterior - Labor Progress (Free Text) Labor Progress: Doing well. Comfortable with epidural in place. Piticon at 24. AROM of forebag done. Continue present management
[2019-09-11] MEDS ORDERED: ePHEDrine/Normal Saline 25 MG/5 ML Syringe ONE
[2019-09-11] MEDS ORDERED: Bupivacaine 0.25% 10 ML SDV ONE
[2019-09-11] MEDS: Lactated Ringers 1,000 ML IV SCH (00:43)
[2019-09-11] MEDS ORDERED: ceFAZolin 2 GM in Premix Bag 1 BAG IV STA (06:05)
[2019-09-11] MEDS ORDERED: ceFAZolin/Dextrose,Iso-Osmotic 2 GM/50 ML Duplex Bag IV ONE (06:08)
[2019-09-11] MEDS ORDERED: fentaNYL 100 MCG/2 ML SDV IVPUSH ONE ×2 (06:14)
--- NOTE | 2019-09-11 06:41 | PCM.DEL ---
L & D Note - General Info Date of Service: 09/11/19 - Delivery Note Labor: Augmented by Oxytocin Delivery Outcome: Livebirth Delivery Method: Spontaneous Vaginal Delivery-Single Delivery Mode: Vacuum Extraction Presentation: Right Occiput Anterior (CARMELLA) Nuchal Cord: None Anesthesia Type: Epidural Amniotic Fluid Description: Clear Episiotomy Type: None Laceration: 2nd Degree, Perineal, Other (hymen avulsion on left side) Suture type: Vicryl Suture size: 2-0 Placenta: Manual Removal Cord: 3 Vessels Estimated Blood Loss: 500 [place]: Bulb Syringe, Stimulated, Warmed, Warriormine Used, Warmer Used Score 1 min: 8 Score 5 min: 9 Delivery Comments (Free Text/Narrative):: The patient was pushing in the dorsal lithotomy position for about 1.5 hours. Patient , but then began to hyperventilate and in her own words "panic" . Headrick not able to push any further. Requested assistance. Maternal pushing effort was good and the pelvis was felt to be adequate for an instrument assisted delivery. The mushroom cup was placed without difficulty with care to avoid the vaginal side andrews. Applied at 0540. Subsequent vacuum assisted vaginal delivery with pushing at 0542. Total pressure applied 550 mm Hg. Total pop offs 0. Suction was removed following delivery of the head. No nuchal cord. The remainder of the infant delivered without difficulty. The umbilical cord was clamped and cut and the infant was placed on maternal abdomen. After 30 minutes of waiting the placenta had still not yet delivered. Patient given 100 mcg of fentanyl and manual exploration done. With moderate amount of difficulty placenta able to be extracted intact. Second uterine cavity evaluation afterwards showed no further residual placenta portions. Inspection of the perineum following delivery with a 2nd degree perineal laceration which was repaired with a 2-0 vicryl in the typical fashion. There was also an avulsion of the hymen noted on the patient's left. A 2-0 vicryl was used to try and reattach this tissue to the vaginal wall. Vacuum Extractor Progress Note - Alternative Labor Strategies Considered Alternative Labor Strategies Considered:: Reports: Yes Strategies Considered:: Reports: Contraction Intensity Adequate, Position Changes Used to Facilitate Rotation & Descent Indications Considered:: Reports: Yes Indications:: Reports: Shortening of 2nd Stage for Maternal Benefit Time Out:: Reports: Yes - Patient Prepared Patient Prepared:: Reports: Yes Informed Consent:: Reports: Yes Risks: Reports: Yes Risks Include:: Reports: Laceration, Shoulder Dystocia, Maternal Injury Anesthesia/Analgesia Adequate:: Reports: Yes - Probability of Success High Probability of Success:: Reports: Yes Weight Estimated:: Reports: AGA Patient Diabetic:: Reports: No Pelvis Adequate:: Reports: Yes Asynclitic:: Reports: No Station:: / outlet - Application Time Maximum Application Time & Number of Pop-Offs Predetermined:: Reports: Yes Maximum Pressure Maintained in Green [place] (cm Hg):: 550 Total Application Time (min): *max=20min: 2 Number of Times Cup Disengaged:: 0 Type of Vacuum Used:: Reports: Cup: Mushroom type Vacuum Extraction: Successful - Exit Strategy Exit strategy available:: Reports: Yes and resuscitation teams readily available:: Reports: Yes - General Info Date of Service: 09/11/19 - Patient Data Vitals - Most Recent: Last Vital Signs Temp 36.7 C 09/10/19 14:50 Pulse 99 09/10/19 14:50 Resp 16 09/10/19 14:50 BP 138/77 09/10/19 14:50 Pulse Ox 97 09/10/19 14:50 Weight - Most Recent: 122.924 kg I&O - Last 24 Hours: Intake & Output 09/10/19 09/10/19 09/11/19 14:59 22:59 06:59 Intake Total 500 3000 Balance 500 3000 - Problem List & Annotations (1) 37 weeks gestation of SNOMED Code(s): 39812551 Code(s): Z3A.37 - 37 WEEKS GESTATION OF Status: Acute Current Visit: Yes (2) SROM (spontaneous rupture of membranes) SNOMED Code(s): 495889317 Code(s): CEP2911 - Status: Acute Current Visit: Yes (3) Abnormal quad screen SNOMED Code(s): 309642414, 228298523 Code(s): O28.0 - ABNORMAL HEMATOLOG FINDING ON SCREENING OF MOTHER Status: Acute Current Visit: Yes (4) Vacuum-assisted vaginal delivery SNOMED Code(s): 15273827010746070 Code(s): Z37.9 - OUTCOME OF DELIVERY, UNSPECIFIED Status: Acute Current Visit: Yes (5) Retained placenta SNOMED Code(s): 076114475 Code(s): O73.0 - RETAINED PLACENTA WITHOUT HEMORRHAGE Status: Acute Current Visit: Yes Qualifiers: Retained placenta detail: complete placenta Qualified Code(s): O73.0 - Retained placenta without hemorrhage - Problem List Review Problem List Initiated/Reviewed/Updated: Yes - My Orders Last 24 Hours: My Active Orders 09/10/19 14:50 Patient Status [ADT] Routine Activity as Tolerated [RC] PFP Communication Order [RC] ASDIRECTED Notify Provider [RC] PFP Notify Provider [RC] PRN Nalbuphine [Nubain] 10 mg IVPUSH Q2H PRN Ondansetron [Zofran] 4 mg IVPUSH Q4H PRN Sodium Chloride 0.9% [Saline Flush] 10 ml FLUSH ASDIRECTED PRN Electronic Heart Tones Ext w TOCO [WOMSER] Routine Electronic Heart Tones Internal [WOMSER] Per Unit Routine Peripheral IV Insertion Adult [OM.PC] Routine Resuscitation Status Routine 09/10/19 14:51 Peripheral IV Care [RC] Q2HR 09/10/19 15:00 Lactated Ringers [Ringers, Lactated] 1,000 ml IV ASDIRECTED Oxytocin/Lactated Ringers [Pitocin in LR 10 Units/1,000 ML] 10 unit in 1,000 ml IV ASDIRECTED Oxytocin/Lactated Ringers [Pitocin in LR 10 Units/1,000 ML] 10 unit in 1,000 ml IV TITRATE 09/10/19 21:00 Oxytocin/Lactated Ringers [Pitocin in LR 20 Units/1,000 ML] 20 unit in 1,000 ml IV TITRATE 09/10/19 Dinner Regular Diet [DIET] - Assessment Assessment:: 28 y/o PPD#0 from [facility] at 37 5/7 wks - Plan Plan:: * Routine cares * Encourage breast feeding * Discharge home in 1-2 days
[2019-09-11] MEDS ORDERED: Acetaminophen 325 MG Tab PO PRN (07:20)
[2019-09-11] MEDS ORDERED: Benzocaine/Menthol 20%-0.5% Spray 56 GM Canister TOP PRN (07:20)
[2019-09-11] MEDS ORDERED: Docusate Sodium 100 MG Cap PO PRN (07:20)
[2019-09-11] MEDS ORDERED: Witch Hazel Medicated Pads 40/Jar TOP PRN (07:20)
[2019-09-11] MEDS: Ibuprofen 600 MG Tab PO PRN (21:06)
[2019-09-12] MEDS: Ibuprofen 600 MG Tab PO PRN ×3 (03:32→21:53)
--- NOTE | 2019-09-12 10:42 | PCM48HPAN ---
Post Anesthesia Note - EVALUATION WITHIN 48HRS OF ANESTHETIC Vital Signs in Normal Range: Yes Patient Participated in Evaluation: Yes Respiratory Function Stable: Yes Airway Patent: Yes Cardiovascular Function Stable: Yes Hydration Status Stable: Yes Pain Control Satisfactory: Yes Nausea and Vomiting Control Satisfactory: Yes Mental Status Recovered: Yes Vital Signs: Last Vital Signs Temp 37.0 C 09/12/19 03:57 Pulse 85 09/12/19 03:57 Resp 14 09/12/19 03:57 BP 131/72 09/12/19 03:57 Pulse Ox 99 09/12/19 03:57 - COMMENTS/OBSERVATIONS Free Text/Narrative:: no anesthesia complications noted
--- NOTE | 2019-09-12 11:07 | PCM.PNPP ---
- General Info Date of Service: 09/12/19 Functional Status: Reports: Pain Controlled, Tolerating Diet, Ambulating, Urinating - Review of Systems General: Reports: No Symptoms Pulmonary: Reports: No Symptoms Cardiovascular: Reports: No Symptoms Gastrointestinal: Reports: No Symptoms Genitourinary: Reports: No Symptoms Musculoskeletal: Reports: No Symptoms - Patient Data Vital Signs - Most Recent: Last Vital Signs Temp 37.0 C 09/12/19 03:57 Pulse 85 09/12/19 03:57 Resp 14 09/12/19 03:57 BP 131/72 09/12/19 03:57 Pulse Ox 99 09/12/19 03:57 Weight - Most Recent: 122.924 kg I&O - Last 24 Hours: Intake & Output 09/11/19 09/12/19 09/12/19 22:59 06:59 14:59 Intake Total 380 360 Balance 380 360 Med Orders - Current: Current Medications Acetaminophen (Tylenol) 650 mg PO Q4H PRN PRN Reason: mild pain or fever Benzocaine/Menthol (Dermoplast Pain Relief [place]) 0 gm TOP ASDIRECTED PRN PRN Reason: Perineal Comfort Measure Last Admin: 09/11/19 16:06 Dose: 1 bottle Docusate Sodium (Colace) 100 mg PO BID PRN PRN Reason: Constipation Ibuprofen (Motrin) 600 mg PO Q6H PRN PRN Reason: Mild pain or fever Last Admin: 09/12/19 03:32 Dose: 600 mg Witch Emerald (Tucks) 1 pad TOP ASDIRECTED PRN PRN Reason: Perineal Comfort Measure Last Admin: 09/11/19 16:07 Dose: 1 tub Discontinued Medications Bupivacaine HCl (Sensorcaine-Mpf 0.25%) 10 ml .ROUTE .STK-MED ONE Stop: 09/11/19 00:01 Cefazolin Sodium/Dextrose (Ancef) Confirm Administered Dose 2 gm IV .STK-MED ONE Stop: 09/11/19 06:09 Last Admin: 09/11/19 08:10 Dose: Not Given Diphenhydramine HCl (Benadryl) 25 mg IVPUSH Q6H PRN PRN Reason: pruritis Ephedrine Sulfate (Ephedrine Sulfate) 5 mg IVPUSH ASDIRECTED PRN PRN Reason: Hypotension Ephedrine Sulfate (Ephedrine In Ns) 25 mg .ROUTE .STK-MED ONE Stop: 09/11/19 00:01 Fentanyl (Sublimaze) 100 mcg EPIDUR Q3H PRN PRN Reason: Pain Last Admin: 09/10/19 22:15 Dose: 100 mcg Fentanyl (Sublimaze) 50 mcg IVPUSH ONETIME ONE Stop: 09/11/19 06:15 Last Admin: 09/11/19 08:10 Dose: Not Given Fentanyl (Sublimaze) 100 mcg IVPUSH ONETIME ONE Stop: 09/11/19 06:15 Last Admin: 09/11/19 06:14 Dose: 100 mcg Fentanyl/Bupivacaine HCl (Fentanyl/Bupivacaine/Ns 2 Mcg-0.125% 250 Ml) 2 mcg EPIDUR CONTINUOUS PRN PRN Reason: Pain Last Admin: 09/10/19 22:15 Dose: 2 mcg Lactated Ringer's (Ringers, Lactated) 1,000 mls @ 100 mls/hr IV ASDIRECTED RACH Last Admin: 09/11/19 00:43 Dose: 125 mls/hr Oxytocin/Lactated Ringer's (Pitocin In Lr 10 Units/1,000 Ml) 10 unit in 1,000 mls @ 500 mls/hr IV ASDIRECTED RACH; Protocol Last Infusion: 09/11/19 06:21 Dose: 999 mls/hr Oxytocin/Lactated Ringer's (Pitocin In Lr 10 Units/1,000 Ml) 10 unit in 1,000 mls @ 12 mls/hr IV TITRATE RACH; Protocol Last Titration: 09/10/19 20:35 Dose: 20 munits/min, 120 mls/hr Oxytocin/Lactated Ringer's (Pitocin In Lr 20 Units/1,000 Ml) 20 unit in 1,000 mls @ 66 mls/hr IV TITRATE RACH; Protocol Oxytocin/Lactated Ringer's (Pitocin In Lr 20 Units/1,000 Ml) 20 unit in 1,000 mls @ 66 mls/hr IV TITRATE RACH; Protocol Last Admin: 09/10/19 21:12 Dose: 66 mls/hr Cefazolin Sodium/Dextrose 2 gm (/ Premix) 50 mls @ 100 mls/hr IV ONETIME STA Stop: 09/11/19 06:34 Last Admin: 09/11/19 06:12 Dose: 100 mls/hr Lidocaine HCl (Xylocaine 1%) 50 ml INJECT ONETIME ONE Stop: 09/10/19 14:51 Last Admin: 09/11/19 08:09 Dose: Not Given Nalbuphine HCl (Nubain) 10 mg IVPUSH Q2H PRN PRN Reason: Pain Ondansetron HCl (Zofran) 4 mg IVPUSH Q4H PRN PRN Reason: Nausea/Vomiting Sodium Chloride (Saline Flush) 10 ml FLUSH ASDIRECTED PRN PRN Reason: Keep Vein Open - Interaction Infant Disposition, : in Room with Family Infant Interaction: Holding Infant Feeding: Attempted ; Nursed Fair/Poor Support Person: - Recovery Exam Fundal Tone: Firm Fundal Level: 1 Fingerbreadths Below Umbilicus Fundal Placement: Midline Lochia Amount: Small, Moderate Lochia Color: Rubra/Red Perineum Description: Other (see below) Other Perinuem Description: 2nd degree w/rep Episiotomy/Laceration: Approximated Bladder Status: Nonpalpable, Voiding Urinary Elimination: Not Voiding - Exam General: Alert, Oriented, Cooperative GI/Abdominal Exam: Soft, Non-Tender Extremities: Normal Inspection Skin: Warm, Dry, Intact - Problem List & Annotations (1) 37 weeks gestation of SNOMED Code(s): 35997834 Code(s): Z3A.37 - 37 WEEKS GESTATION OF Status: Acute Current Visit: Yes (2) SROM (spontaneous rupture of membranes) SNOMED Code(s): 455786303 Code(s): GKR3906 - Status: Acute Current Visit: Yes (3) Abnormal quad screen SNOMED Code(s): 164415934, 284581706 Code(s): O28.0 - ABNORMAL HEMATOLOG FINDING ON SCREENING OF MOTHER Status: Acute Current Visit: Yes (4) Vacuum-assisted vaginal delivery SNOMED Code(s): 65730685779757982 Code(s): Z37.9 - OUTCOME OF DELIVERY, UNSPECIFIED Status: Acute Current Visit: Yes (5) Retained placenta SNOMED Code(s): 286089597 Code(s): O73.0 - RETAINED PLACENTA WITHOUT HEMORRHAGE Status: Acute Current Visit: Yes Qualifiers: Retained placenta detail: complete placenta Qualified Code(s): O73.0 - Retained placenta without hemorrhage - Problem List Review Problem List Initiated/Reviewed/Updated: Yes - My Orders Last 24 Hours: My Active Orders 09/12/19 07:20 Heat Therapy [OM.PC] PRN - Assessment Assessment:: 28 y/o PPD#1 from [facility] at 37 5/7 wks - Plan Plan:: * Routine cares * Encourage breast feeding * Continue to monitor bleeding closely, doing well so far * Discharge home tomorrow
--- NOTE | 2019-09-13 08:22 | PCM.DCSUM1 ---
Discharge Summary - Discharge Data Discharge Date: 09/13/19 Discharge Disposition: Home, Self-Care 01 Condition: Good - Referral to Home Health Primary Care Physician: Whitney Vasquez MD - Discharge Diagnosis/Problem(s) (1) 37 weeks gestation of SNOMED Code(s): 85922918 ICD Code: Z3A.37 - 37 WEEKS GESTATION OF Status: Acute Current Visit: Yes (2) SROM (spontaneous rupture of membranes) SNOMED Code(s): 178410819 ICD Code: DLA4175 - Status: Acute Current Visit: Yes (3) Abnormal quad screen SNOMED Code(s): 091762868, 926040630 ICD Code: O28.0 - ABNORMAL HEMATOLOG FINDING ON SCREENING OF MOTHER Status: Acute Current Visit: Yes (4) Vacuum-assisted vaginal delivery SNOMED Code(s): 91569923141787569 ICD Code: Z37.9 - OUTCOME OF DELIVERY, UNSPECIFIED Status: Acute Current Visit: Yes (5) Retained placenta SNOMED Code(s): 667843313 ICD Code: O73.0 - RETAINED PLACENTA WITHOUT HEMORRHAGE Status: Acute Current Visit: Yes Qualifiers: Retained placenta detail: complete placenta Qualified Code(s): O73.0 - Retained placenta without hemorrhage - Patient Summary/Data Complications: None Consults: None Recommended Follow-up Testing/Procedures: Follow up in 3 weeks for check Hospital Course: 28 y/o presented at 37 4/7 wks with SROM. She was started on pitocin for augmentation. She progressed well to complete dilation. During pushing she did become tired and also experienced a fair amount of pain. For this reason underwent an VAVD. This was uncomplicated. See delivery note. she did well and was discharged home on PPD#2 - Patient Instructions Diet: Regular Diet as Tolerated Activity: As Tolerated Activity, Other: Pelvic rest for 6 weeks Driving: May Drive Today Showering/Bathing: May Shower Showering/Bathing, Other: May Bathe Notify Provider of: Fever, Increased Pain, Swelling and Redness, Drainage, Nausea and/or Vomiting - Discharge Plan *PRESCRIPTION DRUG MONITORING PROGRAM REVIEWED*: Not Applicable *COPY OF PRESCRIPTION DRUG MONITORING REPORT IN PATIENT JEANINE: Not Applicable Home Medications: Home Meds Vits #93/Iron Fum/FA [ Formula Tablet] 1 each PO DAILY [History] Docusate Sodium [Colace] 100 mg PO BID PRN cap 09/13/19 [Rx] Ibuprofen [Motrin] 600 mg PO Q6H PRN tablet 09/13/19 [Rx] Referrals: Nga Juarez MD [Physician] - (3 weeks for check ) - Discharge Summary/Plan Comment DC Time >30 min.: No - Patient Data Vitals - Most Recent: Last Vital Signs Temp 36.2 C 09/13/19 03:24 Pulse 88 09/13/19 03:24 Resp 14 09/13/19 03:24 BP 127/65 09/13/19 03:24 Pulse Ox 98 09/13/19 03:24 Weight - Most Recent: 122.924 kg I&O - Last 24 hours: Intake & Output 09/12/19 09/13/19 09/13/19 22:59 06:59 14:59 Intake Total 360 Balance 360 Med Orders - Current: Current Medications Acetaminophen (Tylenol) 650 mg PO Q4H PRN PRN Reason: mild pain or fever Benzocaine/Menthol (Dermoplast Pain Relief [place]) 0 gm TOP ASDIRECTED PRN PRN Reason: Perineal Comfort Measure Last Admin: 09/11/19 16:06 Dose: 1 bottle Docusate Sodium (Colace) 100 mg PO BID PRN PRN Reason: Constipation Ibuprofen (Motrin) 600 mg PO Q6H PRN PRN Reason: Mild pain or fever Last Admin: 09/12/19 21:53 Dose: 600 mg Witch Emerald (Tucks) 1 pad TOP ASDIRECTED PRN PRN Reason: Perineal Comfort Measure Last Admin: 09/11/19 16:07 Dose: 1 tub Discontinued Medications Bupivacaine HCl (Sensorcaine-Mpf 0.25%) 10 ml .ROUTE .STK-MED ONE Stop: 09/11/19 00:01 Cefazolin Sodium/Dextrose (Ancef) Confirm Administered Dose 2 gm IV .STK-MED ONE Stop: 09/11/19 06:09 Last Admin: 09/11/19 08:10 Dose: Not Given Diphenhydramine HCl (Benadryl) 25 mg IVPUSH Q6H PRN PRN Reason: pruritis Ephedrine Sulfate (Ephedrine Sulfate) 5 mg IVPUSH ASDIRECTED PRN PRN Reason: Hypotension Ephedrine Sulfate (Ephedrine In Ns) 25 mg .ROUTE .STK-MED ONE Stop: 09/11/19 00:01 Fentanyl (Sublimaze) 100 mcg EPIDUR Q3H PRN PRN Reason: Pain Last Admin: 09/10/19 22:15 Dose: 100 mcg Fentanyl (Sublimaze) 50 mcg IVPUSH ONETIME ONE Stop: 09/11/19 06:15 Last Admin: 09/11/19 08:10 Dose: Not Given Fentanyl (Sublimaze) 100 mcg IVPUSH ONETIME ONE Stop: 09/11/19 06:15 Last Admin: 09/11/19 06:14 Dose: 100 mcg Fentanyl/Bupivacaine HCl (Fentanyl/Bupivacaine/Ns 2 Mcg-0.125% 250 Ml) 2 mcg EPIDUR CONTINUOUS PRN PRN Reason: Pain Last Admin: 09/10/19 22:15 Dose: 2 mcg Lactated Ringer's (Ringers, Lactated) 1,000 mls @ 100 mls/hr IV ASDIRECTED RACH Last Admin: 09/11/19 00:43 Dose: 125 mls/hr Oxytocin/Lactated Ringer's (Pitocin In Lr 10 Units/1,000 Ml) 10 unit in 1,000 mls @ 500 mls/hr IV ASDIRECTED RACH; Protocol Last Infusion: 09/11/19 06:21 Dose: 999 mls/hr Oxytocin/Lactated Ringer's (Pitocin In Lr 10 Units/1,000 Ml) 10 unit in 1,000 mls @ 12 mls/hr IV TITRATE RACH; Protocol Last Titration: 09/10/19 20:35 Dose: 20 munits/min, 120 mls/hr Oxytocin/Lactated Ringer's (Pitocin In Lr 20 Units/1,000 Ml) 20 unit in 1,000 mls @ 66 mls/hr IV TITRATE RACH; Protocol Oxytocin/Lactated Ringer's (Pitocin In Lr 20 Units/1,000 Ml) 20 unit in 1,000 mls @ 66 mls/hr IV TITRATE RACH; Protocol Last Admin: 09/10/19 21:12 Dose: 66 mls/hr Cefazolin Sodium/Dextrose 2 gm (/ Premix) 50 mls @ 100 mls/hr IV ONETIME STA Stop: 09/11/19 06:34 Last Admin: 09/11/19 06:12 Dose: 100 mls/hr Lidocaine HCl (Xylocaine 1%) 50 ml INJECT ONETIME ONE Stop: 09/10/19 14:51 Last Admin: 09/11/19 08:09 Dose: Not Given Nalbuphine HCl (Nubain) 10 mg IVPUSH Q2H PRN PRN Reason: Pain Ondansetron HCl (Zofran) 4 mg IVPUSH Q4H PRN PRN Reason: Nausea/Vomiting Sodium Chloride (Saline Flush) 10 ml FLUSH ASDIRECTED PRN PRN Reason: Keep Vein Open
[2019-09-13] MEDS: Ibuprofen 600 MG Tab PO PRN (13:21)
== END 2019-09-13 15:00 | disposition home or self-care (01) | DRG 560 ==
LOC: JD.OBCHECK 14:35 → JD.OB 14:50 → JD.OBCHECK 14:50 → JD.OB 15:00 → OBSVTOIN 09-11 05:42 → JD.OB 09-11 05:43
PROVIDERS: ADMIT Obstetrics & Gynecology; ATTEND Obstetrics & Gynecology
PROC: 0KQM0ZZ Repair Perineum Muscle, Open Approach (ICD-10-PCS; principal; 2019-09-11)
PROC: 10D07Z6 Extraction of Products of Conception, Vacuum, Via Natural or Artificial Opening (ICD-10-PCS; 2019-09-11)
DX: O70.1 Second degree perineal laceration during delivery (principal); O73.0 Retained placenta without hemorrhage; Z3A.37 37 weeks gestation of pregnancy; Z37.0 Single live birth
CPT/HCPCS: 01967; 36415; 51702; 59025; 59409; 85027; 86592; A9270-GY; J0690; J2590; J3010; J3490; J7050; J7120

== ENCOUNTER 2019-09-15 17:02 | Emergency (ER) | payer BC ==
--- NOTE | 2019-09-15 17:17 | EDM.PDOC ---
ED HPI GENERAL MEDICAL PROBLEM - General Chief Complaint: Lower Extremity Injury/Pain Stated Complaint: ALL OVER PAIN-LEGS SWOLLEN/POST Time Seen by Provider: 09/15/19 17:16 - History of Present Illness INITIAL COMMENTS - FREE TEXT/NARRATIVE: 28-year-old female presents emergency room 4 days with swelling and been achy all over. The patient has had a lot of swelling in this seems to be getting worse after her delivery 4 days ago. For the most part the delivery was uneventful. The patient is very anxious and tearful at this time. She is shaky not had any fevers or chills. 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: Neurological History: Reports: Migraines Psychiatric History: Reports: Anxiety, Depression - Infectious Disease History Infectious Disease History: Reports: None - Past Surgical History HEENT Surgical History: Reports: Myringotomy w Tube(s), Oral Surgery, Tonsillectomy Other HEENT Surgeries/Procedures: wisdom teeth extraction 2008 GI Surgical History: Reports: Appendectomy, Colonoscopy, EGD Social & Family History - Family History Family Medical History: Noncontributory - Caffeine Use Caffeine Use: Reports: Coffee Review of Systems - Review of Systems Review Of Systems: See Below Constitutional: Reports: No Symptoms Eyes: Reports: No Symptoms Ears: Reports: No Symptoms Nose: Reports: No Symptoms Mouth/Throat: Reports: No Symptoms Respiratory: Reports: No Symptoms Cardiovascular: Reports: No Symptoms GI/Abdominal: Denies: Abdominal Pain, Constipation, Diarrhea, Nausea, Vomiting Genitourinary: Reports: Vaginal Bleeding (Normal and expected) Musculoskeletal: Reports: Other (She is achy all over) Skin: Reports: No Symptoms Neurological: Reports: No Symptoms Psychiatric: Reports: Depression, Anxiety. Denies: Hallucinations, Suicidal Ideation, Homicidal Ideation ED EXAM, GENERAL - Physical Exam Exam: See Below Exam Limited By: No Limitations General Appearance: Alert, Other (She appears anxious her initial blood pressure was elevated but subsequent blood pressures were normal and reassuring) Head: Atraumatic, Normocephalic Neck: Normal Inspection, Supple, Non-Tender, Full Range of Motion. No: Lymphadenopathy (L), Lymphadenopathy (R) Respiratory/Chest: No Respiratory Distress, Lungs Clear, Normal Breath Sounds Cardiovascular: Regular Rate, Rhythm, No Murmur GI/Abdominal: Normal Bowel Sounds, Soft, Other (Minimal discomfort over the uterus) Back Exam: Normal Inspection. No: CVA Tenderness (L), CVA Tenderness (R) Extremities: Other (She's got edema noted in both lower extremities is appears to be normal fairly equal in both legs no significant redness or warmth to this she has edema elsewhere) Neurological: Alert, Oriented, Normal Cognition, Normal Reflexes, Other (Is anxious ) Course - Vital Signs Last Recorded V/S: Last Vital Signs Temp 36.8 C 09/15/19 19:17 Pulse 79 09/15/19 19:17 Resp 18 09/15/19 19:17 BP 120/81 09/15/19 19:17 Pulse Ox 98 09/15/19 19:17 - Orders/Labs/Meds Orders: Active Orders 24 hr Category Date Time Status CULTURE URINE [RM] Stat Lab 09/15/19 18:37 Stop Req Labs: Laboratory Tests 09/15/19 09/15/19 09/15/19 Range/Units 18:15 18:15 18:39 WBC 12.57 H (3.98-10.04) K/mm3 RBC 3.80 L (3.98-5.22) M/mm3 Hgb 11.1 L (11.2-15.7) gm/dl Hct 34.8 (34.1-44.9) % MCV 91.6 (79.4-94.8) fl MCH 29.2 (25.6-32.2) pg MCHC 31.9 L (32.2-35.5) g/dl RDW Std Deviation 44.7 (36.4-46.3) fL Plt Count 316 (182-369) K/mm3 MPV 8.9 L (9.4-12.3) fl Neutrophils % (Manual) 75 H (40-60) % Band Neutrophils % 1 (0-10) % Lymphocytes % (Manual) 18 L (20-40) % Atypical Lymphs % 0 % Monocytes % (Manual) 3 (2-10) % Eosinophils % (Manual) 2 (0.7-5.8) % Basophils % (Manual) 1 (0.1-1.2) Platelet Estimate Adequate RBC Morph Comment Normal Sodium 141 (136-145) mEq/L Potassium 3.8 (3.5-5.1) mEq/L Chloride 106 (98-107) mEq/L Carbon Dioxide 26 (21-32) mEq/L Anion Gap 12.8 (5-15) BUN 10 (7-18) mg/dL Creatinine 0.6 (0.55-1.02) mg/dL Est Cr Clr Drug Dosing 154.63 mL/min Estimated GFR (MDRD) > 60 (>60) mL/min BUN/Creatinine Ratio 16.7 (14-18) Glucose 84 (74-106) mg/dL Calcium 9.4 (8.5-10.1) mg/dL Total Bilirubin 0.2 (0.2-1.0) mg/dL AST 23 (15-37) U/L ALT 32 (14-59) U/L Alkaline Phosphatase 120 H (46-116) U/L Total Protein 6.6 (6.4-8.2) g/dl Albumin 3.0 L (3.4-5.0) g/dl Globulin 3.6 gm/dL Albumin/Globulin Ratio 0.8 L (1-2) Urine Color Yellow (Yellow) Urine Appearance Slt cloudy H (Clear) Urine pH 6.5 (5.0-8.0) Ur Specific [place] 1.020 (1.005-1.030) Urine Protein 1+ H (Negative) Urine Glucose (UA) Negative (Negative) Urine Ketones 1+ H (Negative) Urine Occult Blood 2+ H (Negative) Urine Nitrite Negative (Negative) Urine Bilirubin Negative (Negative) Urine Urobilinogen 0.2 (0.2-1.0) Ur Leukocyte Esterase 2+ H (Negative) Urine RBC 30-40 H (0-5) /hpf Urine WBC 40-50 H (0-5) /hpf Ur Squamous Epith Cells 5-10 H (0-5) /hpf Urine Bacteria Few (FEW) /hpf Urine Mucus Moderate H (FEW) /hpf Meds: Medications Discontinued Medications Generic Name Dose Route Start Last Admin Trade Name Oscar PRN Reason Stop Dose Admin Lorazepam 1 mg 09/15/19 18:03 09/15/19 18:17 Ativan PO 09/15/19 18:04 1 mg ONETIME ONE Administration - Re-Assessments/Exams Free Text/Narrative Re-Assessment/Exam: 09/15/19 19:[address] Juarez we checked some basic line labs and gave her a milligram of Ativan the Ativan helped out quite a bit she was less tearful but still tearful. Her labs were fairly assuring urinalysis was too contaminated to do much with. After the Ativan her shaking stopped she was much calmer still a little tearful at times but not like she was on admission. Her vital signs remained stable most recent blood pressure is 120/81 pulse 79 O2 saturation 98% on room air temp 98.3. Dr. Juarez will see the patient tomorrow morning in the clinic. Departure - Departure Time of Disposition: 19:34 Disposition: Home, Self-Care 01 Clinical Impression: edema, anxiety - Discharge Information Referrals: Nga Juarez MD [Primary Care Provider] - Forms: ED Department Discharge Additional Instructions: Return to the emergency room with any questions problems or worsening symptoms. Follow-up with Dr. Juarez tomorrow morning as we discussed. It is my understanding the clinic will contact you in the morning to get you in in the morning - My Orders Last 24 Hours: My Active Orders 09/15/19 18:37 CULTURE URINE [RM] Stat - Assessment/Plan Last 24 Hours: My Active Orders 09/15/19 18:37 CULTURE URINE [RM] Stat
[2019-09-15] MEDS ORDERED: LORazepam 1 MG Tab PO ONE (18:03)
== END 2019-09-15 19:50 | disposition home or self-care (01) ==
LOC: JD.ED 17:02
DX: O99.89 Other specified diseases and conditions complicating pregnancy, childbirth and the puerperium (principal); R60.9 Edema, unspecified; O99.345 Other mental disorders complicating the puerperium; F41.9 Anxiety disorder, unspecified
CPT/HCPCS: 36415; 80053; 81001; 85007; 85027; 99283; A9270; 87086

== ENCOUNTER 2021-05-16 07:26 | Inpatient (IN) | payer BC ==
[~2021-05-16 07:26] MED LIST: Bupivacaine 0.25% 10 ML SDV ONE
[2021-05-16] MEDS ORDERED: Ondansetron 4 MG/2 ML SDV IVPUSH PRN (07:27)
[2021-05-16] MEDS ORDERED: Sodium Chloride 0.9% 10 ML Syringe FLUSH PRN (07:27)
[2021-05-16] MEDS ORDERED: Nalbuphine 10 MG/1 ML Vial IVPUSH PRN (07:27)
[2021-05-16] MEDS ORDERED: Oxytocin/Lactated Ringers 10 UNIT/1,000 ML BAG IV SCH ×2 (07:30)
--- NOTE | 2021-05-16 07:30 | PCM.LDHP ---
L&D History of Present Illness - General Date of Service: 05/16/21 Admit Problem/Dx: Patient Status Order with Admit Dx/Problem 05/16/21 07:27 Patient Status [ADT] Routine Admission Diagnosis/Problem Admission Diagnosis/Problem Normal in third trimester Source of Information: Patient History Limitations: Reports: No Limitations - History of Present Illness Introduction:: Patient is 30 y/o at 39 0/7 wks who presents for elective IOL. Doing well today. No specific concerns. 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: : 2 Para: 1 LMP (Approximate): Musculoskeletal History: Reports: Arthritis Neurological History: Reports: Migraines Psychiatric History: Reports: Anxiety Endocrine/Metabolic History: Reports: Obesity/BMI 30+ - Past Surgical History HEENT Surgical History: Reports: Myringotomy w Tube(s), Oral Surgery, Tonsillectomy Other HEENT Surgeries/Procedures: wisdom teeth extraction 2008 GI Surgical History: Reports: Appendectomy, Colonoscopy, EGD Social & Family History - Family History Family Medical History: No Pertinent Family History - Tobacco Use Tobacco Use Status *Q: Never Tobacco User - Caffeine Use Caffeine Use: Reports: Coffee - Alcohol Use Alcohol Use History: No - Recreational Drug Use Recreational Drug Use: No H&P Review of Systems - Review of Systems: Review Of Systems: See Below General: Reports: No Symptoms Pulmonary: Reports: No Symptoms Cardiovascular: Reports: No Symptoms Gastrointestinal: Reports: No Symptoms Genitourinary: Reports: No Symptoms Musculoskeletal: Reports: No Symptoms Psychiatric: Reports: No Symptoms Neurological: Reports: No Symptoms L&D Exam - Exam Exam: See Below - OB Specific Contraction Intensity: Irritability Movement: Active Heart Tones: Present Heart Tones per Min: 125 Heart Rate (FHR) Variability: Moderate (6-25 bmp) Presentation: Vertex - Garcia Score Garcia Score Cervix Position: Midposition Garcia Score Consistency: Soft Garcia Score Effacement: 51-70% Garcia Score Dilation: 1-2 cm Garcia Score Infant's Station: -2 Garcia Score Total: 7 - Exam General: Alert, Oriented, Cooperative Lungs: Clear to Auscultation, Normal Respiratory Effort Cardiovascular: Regular Rate, Regular Rhythm GI/Abdominal Exam: Soft, Non-Tender Genitourinary: Normal external exam Extremities: Normal Inspection Skin: Warm, Dry, Intact - Patient Data Result Diagrams: 05/16/21 07:43 - Problem List (1) 39 weeks gestation of SNOMED Code(s): 07018146 ICD Code: Z3A.39 - 39 WEEKS GESTATION OF Status: Acute Current Visit: Yes (2) Pyelectasis of fetus on ultrasound SNOMED Code(s): 208688425 ICD Code: O35.8XX0 - MATERNAL CARE FOR OTH ABNORMALITY AND DAMAGE, UNSP Status: Acute Current Visit: Yes Problem List Initiated/Reviewed/Updated: Yes Orders Last 24hrs: Active Orders 24 hr Category Date Time Status Patient Status [ADT] Routine ADT 05/16/21 07:27 Ordered Communication Order [RC] ASDIRECTED Care 05/16/21 07:27 Ordered Communication Order [RC] ASDIRECTED Care 05/16/21 07:27 Ordered Communication Order [RC] ASDIRECTED Care 05/16/21 07:27 Ordered Heart Tones [RC] ASDIRECTED Care 05/16/21 07:27 Ordered Non Stress Test [RC] PER UNIT ROUTINE Care 05/16/21 07:27 Ordered Notify Provider [RC] ASDIRECTED Care 05/16/21 07:27 Ordered Notify Provider [RC] PRN Care 05/16/21 07:27 Ordered Peripheral IV Care [RC] . DIRECTED Care 05/16/21 07:27 Ordered Up ad Evon [RC] ASDIRECTED Care 05/16/21 07:27 Ordered Vaginal Exam [RC] ASDIRECTED Care 05/16/21 07:27 Ordered Vital Signs [RC] ASDIRECTED Care 05/16/21 07:27 Ordered Regular Diet [DIET] Diet 05/16/21 Breakfast Ordered CBC W/O DIFF,HEMOGRAM [HEME] Routine Lab 05/16/21 07:27 Ordered HEP C VIRUS AB [REF] Routine Lab 05/16/21 07:27 Ordered RAPID PLASMA REAGIN,RPR [CHEM] Routine Lab 05/16/21 07:27 Ordered TYPE AND SCREEN [BBK] Routine Lab 05/16/21 07:27 Ordered Lactated Ringers [Ringers, Lactated] 1,000 ml Med 05/16/21 07:30 Ordered IV ASDIRECTED Nalbuphine [Nubain] Med 05/16/21 07:27 Ordered 10 mg IVPUSH Q2H PRN Ondansetron [Zofran] Med 05/16/21 07:27 Ordered 4 mg IVPUSH Q4H PRN Oxytocin/Lactated Ringers [Pitocin in LR 10 Units/1,000 Med 05/16/21 07:30 Ordered ML] 10 unit in 1,000 ml IV .CONTINUOUS Oxytocin/Lactated Ringers [Pitocin in LR 10 Units/1,000 Med 05/16/21 07:30 Ordered ML] 10 unit in 1,000 ml IV TITRATE Sodium Chloride 0.9% [Saline Flush] Med 05/16/21 07:27 Ordered 10 ml FLUSH ASDIRECTED PRN Electronic Heart Tones Ext w TOCO [WOMSER] Oth 05/16/21 07:27 Ordered Routine Electronic Heart Tones Internal [WOMSER] Per Unit Ot 05/16/21 07:27 Ordered Routine Peripheral IV Insertion Adult [OM.PC] Routine Oth 05/16/21 07:27 Ordered Resuscitation Status Routine Resus Stat 05/16/21 07:27 Ordered Assessment/Plan Comment:: * Labs to be done * GBS negative * Pitocin / AROM for IOL * Pain management per patient preference * Anticipate * Regular christian science healer, Dr. Stewart, already informed of pyelectasis. Will notify etch operator semiconductor wafers physician as well
[2021-05-16] MEDS: Lactated Ringers 1,000 ML IV SCH ×3 (09:11→17:30)
[2021-05-16] MEDS ORDERED: fentaNYL 100 MCG/2 ML SDV EPIDUR PRN (09:43)
[2021-05-16] MEDS ORDERED: Bupivacaine/fentaNYL/NS 100 ML Bag EPIDUR PRN (09:43)
[2021-05-16] MEDS ORDERED: diphenhydrAMINE 50 MG/ML SDV IVPUSH PRN (09:43)
--- NOTE | 2021-05-16 16:20 | PCM.PREANE ---
Preanesthetic Assessment - Procedure Proposed Procedure: Labor Epidural - Anesthesia/Transfusion/Family Hx Anesthesia History: Prior Anesthesia Without Reaction Family History of Anesthesia Reaction: No Transfusion History: No Prior Transfusion(s) - Review of Systems General: No Symptoms Pulmonary: No Symptoms Cardiovascular: No Symptoms Gastrointestinal: Other (GERD) Neurological: Headache (Migraines), Pre-Existing Deficit (Chronic back pain, rheumatoid arthritis, previous MRI of back disc buldge at L4-5. Does see chiropractor as needed. ) Other: Reports: Depression, Anxiety - Physical Assessment Vital Signs: Last Vital Signs Temp 36.9 C 05/16/21 07:27 Pulse 97 05/16/21 09:02 Resp 15 05/16/21 07:27 BP 120/79 05/16/21 09:02 Pulse Ox Height: 1.83 m Weight: 121.563 kg ASA Class: 2 Mental Status: Alert & Oriented x3 Airway Class: Mallampati = 2 Dentition: Reports: Normal Dentition Thyro-Mental Finger Breadths: 3 Mouth Opening Finger Breadths: 3 ROM/Head Extension: Full Lungs: Clear to Auscultation, Normal Respiratory Effort Cardiovascular: Regular Rate, Regular Rhythm - Lab Values: Laboratory Last Values WBC 8.20 K/mm3 (3.98-10.04) 05/16/21 07:43 RBC 4.03 M/mm3 (3.98-5.22) 05/16/21 07:43 Hgb 11.9 gm/dl (11.2-15.7) 05/16/21 07:43 Hct 36.9 % (34.1-44.9) 05/16/21 07:43 MCV 91.6 fl (79.4-94.8) 05/16/21 07:43 MCH 29.5 pg (25.6-32.2) 05/16/21 07:43 MCHC 32.2 g/dl (32.2-35.5) 05/16/21 07:43 RDW Std Deviation 44.8 fL (36.4-46.3) 05/16/21 07:43 Plt Count 225 K/mm3 (182-369) D 05/16/21 07:43 MPV 9.4 fl (9.4-12.3) 05/16/21 07:43 SARS-CoV-2 RNA (YISSEL) Negative (NEGATIVE) 05/16/21 08:30 Blood Type AB POSITIVE 05/16/21 07:43 Gel Antibody Screen Negative 05/16/21 07:43 - Allergies Allergies/Adverse Reactions: Allergies Allergy/AdvReac Type Severity Reaction Status Date / Time No Known Allergies Allergy Verified 09/15/19 17:15 - Acknowledgements Anesthesia Type Planned: Epidural Pt an Appropriate Candidate for the Planned Anesthesia: Yes Alternatives and Risks of Anesthesia Discussed w Pt/Guardian: Yes Pt/Guardian Understands and Agrees with Anesthesia Plan: Yes Additional Comments: Alyse has had a previous epidural without issue that worked well for her labor pain. She does understand and epidural could aggravate her back pain and wishes to proceed. 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: Musculoskeletal History: Reports: Arthritis Neurological History: Reports: Migraines Psychiatric History: Reports: Anxiety Endocrine/Metabolic History: Reports: Obesity/BMI 30+ Hematologic History: Reports: None Immunologic History: Reports: None Oncologic (Cancer) History: Reports: None Dermatologic History: Reports: None - Infectious Disease History Infectious Disease History: Reports: None, Other (See Below) Other Infectious Disease History: + covid August 2020 with symptos, + covid Dec 2020 without smptoms - Past Surgical History Head Surgeries/Procedures: Reports: None HEENT Surgical History: Reports: Myringotomy w Tube(s), Oral Surgery, Tonsillectomy Other HEENT Surgeries/Procedures: wisdom teeth extraction 2008 GI Surgical History: Reports: Appendectomy, Colonoscopy, EGD - SUBSTANCE USE Tobacco Use Status *Q: Never Tobacco User Tobacco Use Within Last Twelve Months: Smokeless Tobacco Second Hand Smoke Exposure: No Recreational Drug Use History: No - HOME MEDS Home Medications: Home Meds Vits #93/Iron Fum/FA [ Formula Tablet] 1 each PO DAILY 09/10/19 [History] Docusate Sodium [Colace] 100 mg PO BID PRN cap 09/13/19 [Rx] Hydroxychloroquine [Plaquenil] 200 mg PO DAILY 05/16/21 [History] LORazepam [Lorazepam] 0.5 mg PO QID PRN 05/16/21 [History] - CURRENT (IN HOUSE) MEDS Current Meds: Current Medications Diphenhydramine HCl (Diphenhydramine 50 Mg/Ml Sdv) 25 mg IVPUSH Q6H PRN PRN Reason: pruritis Ephedrine Sulfate (Ephedrine 50 Mg/Ml Sdv) 5 mg IVPUSH ASDIRECTED PRN PRN Reason: Hypotension Fentanyl (Fentanyl 100 Mcg/2 Ml Sdv) 100 mcg EPIDUR Q3H PRN PRN Reason: Pain Last Admin: 05/16/21 15:45 Dose: 100 mcg Documented by: Fentanyl/Bupivacaine HCl (Bupivacaine/Fentanyl/Ns 100 Ml Bag) 100 ml EPIDUR ASDIRECTED PRN PRN Reason: Pain Last Admin: 05/16/21 15:46 Dose: 100 ml Documented by: Oxytocin/Lactated Ringer's (Pitocin In Lr 10 Units/1,000 Ml) 10 unit in 1,000 mls @ 12 mls/hr IV TITRATE RACH; Protocol Last Titration: 05/16/21 14:00 Dose: 12 munits/min, 72 mls/hr Documented by: Oxytocin/Lactated Ringer's (Pitocin In Lr 10 Units/1,000 Ml) 10 unit in 1,000 mls @ 500 mls/hr IV .CONTINUOUS RACH Lactated Ringer's (Ringers, Lactated) 1,000 mls @ 40 mls/hr IV ASDIRECTED RACH Last Admin: 05/16/21 09:11 Dose: 40 mls/hr Documented by: Nalbuphine HCl (Nalbuphine 10 Mg/1 Ml Vial) 10 mg IVPUSH Q2H PRN PRN Reason: Pain Ondansetron HCl (Ondansetron 4 Mg/2 Ml Sdv) 4 mg IVPUSH Q4H PRN PRN Reason: Nausea/Vomiting Sodium Chloride (Sodium Chloride 0.9% 10 Ml Syringe) 10 ml FLUSH ASDIRECTED PRN PRN Reason: Keep Vein Open
[2021-05-16] MEDS ORDERED: Acetaminophen 325 MG Tab PO PRN ×2 (16:44→22:53)
[2021-05-16] MEDS: ePHEDrine 50 MG/ML SDV IVPUSH PRN ×3 (17:06→17:37)
--- NOTE | 2021-05-16 21:10 | PCM.DEL ---
L & D Note - General Info Date of Service: 05/16/21 - Delivery Note Labor: Induced by ARM, Induced by Oxytocin Cervical Ripening Method: Oxytocin Delivery Outcome: Livebirth Delivery Method: Spontaneous Vaginal Delivery-Single Infant Delivery Mode: Spontaneous Presentation: Right Occiput Anterior (CARMELLA) Nuchal Cord: None Anesthesia Type: Epidural Amniotic Fluid Description: Meconium Stained (light) Episiotomy Type: None Laceration: 2nd Degree, Perineal Suture type: Vicryl Suture size: 2-0 Placenta: Intact, Spontaneous Cord: 3 Vessels Estimated Blood Loss: 200 Resuscitation Needed: Yes : Bulb Syringe, Stimulated, Warmed, [place] Used, Warmer Used Delivery Comments (Free Text/Narrative):: Patient found to be complete and began pushing. With maternal pushing effort head delivered from an CARMELLA presentation. No nuchal cord present. With gentle downward traction shoulders and body delivered. Infant placed on maternal abdomen. Cord clamped and cut. Cord blood obtained. Placenta allowed time to separate and expelled intact. Inspection of perineum showed a 2nd degree laceration which was repaired with a 2-0 Vicryl. Also had a disruption of hymen at last delivery with a finger like projection of tissue noted. 2-0 Vicryl suture used to tie at base of this to best of ability and then trim about 1 cm of tissue - General Info Date of Service: 05/16/21 - Patient Data Vitals - Most Recent: Last Vital Signs Temp 36.9 C 05/16/21 07:27 Pulse 97 05/16/21 09:02 Resp 15 05/16/21 07:27 BP 120/79 05/16/21 09:02 Pulse Ox Weight - Most Recent: 121.563 kg I&O - Last 24 Hours: Intake & Output 05/16/21 05/16/21 05/16/21 06:59 14:59 22:59 Intake Total 60 2000 Output Total 600 Balance 60 1400 - Exam Urinary Catheter Total Time: 0Days 0Hours - Problem List & Annotations (1) 39 weeks gestation of SNOMED Code(s): 65748239 Code(s): Z3A.39 - 39 WEEKS GESTATION OF Status: Acute Current Visit: Yes (2) Pyelectasis of fetus on ultrasound SNOMED Code(s): 074698684 Code(s): O35.8XX0 - MATERNAL CARE FOR OTH ABNORMALITY AND DAMAGE, UNSP Status: Acute Current Visit: Yes - Problem List Review Problem List Initiated/Reviewed/Updated: Yes - My Orders Last 24 Hours: My Active Orders 05/16/21 Breakfast Regular Diet [DIET] 05/16/21 07:27 Patient Status [ADT] Routine Communication Order [RC] ASDIRECTED Communication Order [RC] ASDIRECTED Communication Order [RC] ASDIRECTED Heart Tones [RC] ASDIRECTED Non Stress Test [RC] PER UNIT ROUTINE Notify Provider [RC] ASDIRECTED Notify Provider [RC] PRN Peripheral IV Care [RC] . DIRECTED Up ad Evon [RC] ASDIRECTED Vaginal Exam [RC] ASDIRECTED Vital Signs [RC] ASDIRECTED Nalbuphine [Nubain] 10 mg IVPUSH Q2H PRN Ondansetron [Zofran] 4 mg IVPUSH Q4H PRN Sodium Chloride 0.9% [Saline Flush] 10 ml FLUSH ASDIRECTED PRN Electronic Heart Tones Ext w TOCO [WOMSER] Routine Electronic Heart Tones Internal [WOMSER] Per Unit Routine Peripheral IV Insertion Adult [OM.PC] Routine Resuscitation Status Routine 05/16/21 07:30 Lactated Ringers [Ringers, Lactated] 1,000 ml IV ASDIRECTED Oxytocin/Lactated Ringers [Pitocin in LR 10 Units/1,000 ML] 10 unit in 1,000 ml IV .CONTINUOUS Oxytocin/Lactated Ringers [Pitocin in LR 10 Units/1,000 ML] 10 unit in 1,000 ml IV TITRATE 05/16/21 07:43 HEP C VIRUS AB [REF] Routine 05/16/21 16:44 Acetaminophen [TylenoL] 650 mg PO Q6H PRN 05/16/21 18:51 Urinary Catheter Assessment [RC] ASDIRECTED 05/16/21 18:53 Pump Management, Intrathecal [RC] ASDIRECTED - Assessment Assessment:: PPD#0 - Plan Plan:: * Routine cares * Breast feeding currently * Discharge home in 1-2 days
[2021-05-16] MEDS ORDERED: Witch Hazel Medicated Pads 40/Jar TOP PRN (22:53)
[2021-05-16] MEDS ORDERED: Benzocaine/Menthol 20%-0.5% Spray 56 GM Canister TOP PRN (22:53)
[2021-05-16] MEDS: Ibuprofen 600 MG Tab PO PRN (23:31)
[2021-05-16] MEDS: Docusate Sodium 100 MG Cap PO PRN (23:31)
--- NOTE | 2021-05-17 06:57 | PCM48HPAN ---
Post Anesthesia Note - EVALUATION WITHIN 48HRS OF ANESTHETIC Vital Signs in Normal Range: Yes Patient Participated in Evaluation: Yes Respiratory Function Stable: Yes Airway Patent: Yes Cardiovascular Function Stable: Yes Hydration Status Stable: Yes Pain Control Satisfactory: Yes Nausea and Vomiting Control Satisfactory: Yes Mental Status Recovered: Yes Vital Signs: Last Vital Signs Temp 98.4 F 05/17/21 04:39 Pulse 87 05/17/21 04:39 Resp 15 05/17/21 04:39 BP 128/78 05/17/21 04:39 Pulse Ox 99 05/17/21 04:39 - COMMENTS/OBSERVATIONS Free Text/Narrative:: Patient holding baby when visiting. Patient denied pain aches and signs/symptoms of PDPH. Patient stated that her epidural "worked great". Patient stated that she was very happy with her experience.
--- NOTE | 2021-05-17 07:55 | PCM.PNPP ---
- General Info Date of Service: 05/17/21 Functional Status: Reports: Pain Controlled, Tolerating Diet, Ambulating, Urinating - Review of Systems General: Reports: No Symptoms Pulmonary: Reports: No Symptoms Cardiovascular: Reports: No Symptoms Gastrointestinal: Reports: No Symptoms Genitourinary: Reports: No Symptoms Musculoskeletal: Reports: No Symptoms - Patient Data Vital Signs - Most Recent: Last Vital Signs Temp 36.9 C 05/17/21 04:39 Pulse 87 05/17/21 04:39 Resp 15 05/17/21 04:39 BP 128/78 05/17/21 04:39 Pulse Ox 99 05/17/21 04:39 Weight - Most Recent: 121.563 kg I&O - Last 24 Hours: Intake & Output 05/16/21 05/17/21 05/17/21 22:59 06:59 14:59 Intake Total 2120 2650 Output Total 900 164 Balance 1220 2486 Lab Results - Last 24 Hours: Laboratory Results - last 24 hr 05/16/21 05/16/21 05/16/21 Range/Units 07:43 07:43 08:30 RPR Non-reactive (NONREACTIVE) SARS-CoV-2 RNA (YISSEL) Negative (NEGATIVE) Blood Type AB POSITIVE Gel Antibody Screen Negative Med Orders - Current: Current Medications Acetaminophen (Acetaminophen 325 Mg Tab) 650 mg PO Q4H PRN PRN Reason: mild pain or fever Benzocaine/Menthol (Benzocaine/Menthol 20%-0.5% [place] 56 Gm Canister) 0 gm TOP ASDIRECTED PRN PRN Reason: Perineal Comfort Measure Last Admin: 05/16/21 23:30 Dose: 1 can Documented by: Docusate Sodium (Docusate Sodium 100 Mg Cap) 100 mg PO BID PRN PRN Reason: Constipation Last Admin: 05/16/21 23:31 Dose: 100 mg Documented by: Ibuprofen (Ibuprofen 600 Mg Tab) 600 mg PO Q4H PRN PRN Reason: Mild pain or fever Last Admin: 05/16/21 23:31 Dose: 600 mg Documented by: Witch [place] ([place] Medicated Pads 40/Jar) 1 pad TOP ASDIRECTED PRN PRN Reason: Perineal Comfort Measure Last Admin: 05/16/21 23:31 Dose: 1 tub Documented by: Discontinued Medications Acetaminophen (Acetaminophen 325 Mg Tab) 650 mg PO Q6H PRN PRN Reason: Pain Last Admin: 05/16/21 17:01 Dose: 650 mg Documented by: Diphenhydramine HCl (Diphenhydramine 50 Mg/Ml Sdv) 25 mg IVPUSH Q6H PRN PRN Reason: pruritis Ephedrine Sulfate (Ephedrine 50 Mg/Ml Sdv) 5 mg IVPUSH ASDIRECTED PRN PRN Reason: Hypotension Last Admin: 05/16/21 17:37 Dose: 5 mg Documented by: Fentanyl (Fentanyl 100 Mcg/2 Ml Sdv) 100 mcg EPIDUR Q3H PRN PRN Reason: Pain Last Admin: 05/16/21 15:45 Dose: 100 mcg Documented by: Fentanyl/Bupivacaine HCl (Bupivacaine/Fentanyl/Ns 100 Ml Bag) 100 ml EPIDUR ASDIRECTED PRN PRN Reason: Pain Last Admin: 05/16/21 15:46 Dose: 100 ml Documented by: Oxytocin/Lactated Ringer's (Pitocin In Lr 10 Units/1,000 Ml) 10 unit in 1,000 mls @ 12 mls/hr IV TITRATE RACH; Protocol Last Titration: 05/16/21 20:49 Dose: 166.5 munits/min, 999 mls/hr Documented by: Oxytocin/Lactated Ringer's (Pitocin In Lr 10 Units/1,000 Ml) 10 unit in 1,000 mls @ 500 mls/hr IV .CONTINUOUS RACH Last Admin: 05/16/21 21:07 Dose: 999 mls/hr Documented by: Lactated Ringer's (Ringers, Lactated) 1,000 mls @ 40 mls/hr IV ASDIRECTED RACH Last Admin: 05/16/21 17:30 Dose: 40 mls/hr Documented by: Nalbuphine HCl (Nalbuphine 10 Mg/1 Ml Vial) 10 mg IVPUSH Q2H PRN PRN Reason: Pain Ondansetron HCl (Ondansetron 4 Mg/2 Ml Sdv) 4 mg IVPUSH Q4H PRN PRN Reason: Nausea/Vomiting Sodium Chloride (Sodium Chloride 0.9% 10 Ml Syringe) 10 ml FLUSH ASDIRECTED PRN PRN Reason: Keep Vein Open - Interaction Disposition, : [place] in Room with Family Infant Interaction: Holding Infant Feeding: Breastfed ; Nursed Well Support Person: - Recovery Exam Fundal Tone: Firm Fundal Level: At Umbilicus Lochia Amount: Small Lochia Color: Rubra/Red Perineum Description: Intact, Minimal Bruising/Swelling Bladder Status: Voiding - Exam General: Alert, Oriented, Cooperative GI/Abdominal Exam: Soft, Non-Tender - Problem List & Annotations (1) 39 weeks gestation of SNOMED Code(s): 59055350 Code(s): Z3A.39 - 39 WEEKS GESTATION OF Status: Acute Current Visit: Yes (2) Pyelectasis of fetus on ultrasound SNOMED Code(s): 423081356 Code(s): O35.8XX0 - MATERNAL CARE FOR OTH ABNORMALITY AND DAMAGE, UNSP Status: Acute Current Visit: Yes (3) Vacuum-assisted vaginal delivery SNOMED Code(s): 89449316812775446 Code(s): Z37.9 - OUTCOME OF DELIVERY, UNSPECIFIED Status: Acute Current Visit: No - Problem List Review Problem List Initiated/Reviewed/Updated: Yes - My Orders Last 24 Hours: My Active Orders 05/16/21 07:27 Resuscitation Status Routine 05/16/21 07:43 HEP C VIRUS AB [REF] Routine 05/16/21 Dinner Regular Diet [DIET] 05/16/21 22:53 Acetaminophen [TylenoL] 650 mg PO Q4H PRN Benzocaine/Menthol [Dermoplast Pain Relief [place]] See Dose Instructions TOP ASDIRECTED PRN Docusate Sodium [Colace] 100 mg PO BID PRN Ibuprofen [Motrin] 600 mg PO Q4H PRN [place] [Tucks] 1 pad TOP ASDIRECTED PRN Heat Therapy [OM.PC] PRN 05/16/21 22:53 Activity as Tolerated [RC] PER UNIT ROUTINE Vital Signs [RC] 03,,15,21 Assess Lochia [WOMSER] Per Unit Routine Assess Uterine Involution [WOMSER] Per Unit Routine Breast Pump [WOMSER] Per Unit Routine Ice Therapy [OM.PC] Per Unit Routine Perineal Care [OM.PC] Per Unit Routine Peripheral IV Discontinue [OM.PC] Routine Sitz Bath [OM.PC] Per Unit Routine 05/17/21 09:00 Hydroxychloroquine [Plaquenil] 400 mg PO DAILY 05/17/21 22:53 Heat Therapy [OM.PC] PRN - Assessment Assessment:: PPD#1 - Plan Plan:: * Routine cares * Breast feeding currently * Continue home Plaquenil for RA diagnosis * Discharge home today vs tomorrow depending upon Peds preference
[2021-05-17] MEDS: Docusate Sodium 100 MG Cap PO PRN (07:59)
[2021-05-17] MEDS: Ibuprofen 600 MG Tab PO PRN ×3 (07:59→21:44)
[2021-05-17] MEDS: Hydroxychloroquine 200 MG Tab PO SCH (16:15)
--- NOTE | 2021-05-18 03:14 | PCM.PNPP ---
- General Info Date of Service: 05/18/21 Functional Status: Reports: Pain Controlled, Tolerating Diet, Ambulating, Urinating - Review of Systems General: Reports: No Symptoms Pulmonary: Reports: No Symptoms Cardiovascular: Reports: No Symptoms Gastrointestinal: Reports: No Symptoms Genitourinary: Reports: No Symptoms Musculoskeletal: Reports: No Symptoms - Patient Data Vital Signs - Most Recent: Last Vital Signs Temp 36.6 C 05/17/21 20:31 Pulse 79 05/17/21 20:31 Resp 17 05/17/21 20:31 BP 119/71 05/17/21 20:31 Pulse Ox 98 05/17/21 20:31 Weight - Most Recent: 121.563 kg I&O - Last 24 Hours: Intake & Output 05/17/21 05/17/21 05/18/21 14:59 22:59 06:59 Intake Total 120 Balance 120 Med Orders - Current: Current Medications Acetaminophen (Acetaminophen 325 Mg Tab) 650 mg PO Q4H PRN PRN Reason: mild pain or fever Last Admin: 05/17/21 15:44 Dose: 650 mg Documented by: Benzocaine/Menthol (Benzocaine/Menthol 20%-0.5% [place] 56 Gm Canister) 0 gm TOP ASDIRECTED PRN PRN Reason: Perineal Comfort Measure Last Admin: 05/16/21 23:30 Dose: 1 can Documented by: Docusate Sodium (Docusate Sodium 100 Mg Cap) 100 mg PO BID PRN PRN Reason: Constipation Last Admin: 05/17/21 07:59 Dose: 100 mg Documented by: Hydroxychloroquine Sulfate (Hydroxychloroquine 200 Mg Tab) 400 mg PO DAILY RACH Last Admin: 05/17/21 16:15 Dose: Not Given Documented by: Ibuprofen (Ibuprofen 600 Mg Tab) 600 mg PO Q4H PRN PRN Reason: Mild pain or fever Last Admin: 05/17/21 21:44 Dose: 600 mg Documented by: Fredo Corbin (Witch [place] Medicated Pads 40/Jar) 1 pad TOP ASDIRECTED PRN PRN Reason: Perineal Comfort Measure Last Admin: 05/16/21 23:31 Dose: 1 tub Documented by: Discontinued Medications Acetaminophen (Acetaminophen 325 Mg Tab) 650 mg PO Q6H PRN PRN Reason: Pain Last Admin: 05/16/21 17:01 Dose: 650 mg Documented by: Diphenhydramine HCl (Diphenhydramine 50 Mg/Ml Sdv) 25 mg IVPUSH Q6H PRN PRN Reason: pruritis Ephedrine Sulfate (Ephedrine 50 Mg/Ml Sdv) 5 mg IVPUSH ASDIRECTED PRN PRN Reason: Hypotension Last Admin: 05/16/21 17:37 Dose: 5 mg Documented by: Fentanyl (Fentanyl 100 Mcg/2 Ml Sdv) 100 mcg EPIDUR Q3H PRN PRN Reason: Pain Last Admin: 05/16/21 15:45 Dose: 100 mcg Documented by: Fentanyl/Bupivacaine HCl (Bupivacaine/Fentanyl/Ns 100 Ml Bag) 100 ml EPIDUR ASDIRECTED PRN PRN Reason: Pain Last Admin: 05/16/21 15:46 Dose: 100 ml Documented by: Oxytocin/Lactated Ringer's (Pitocin In Lr 10 Units/1,000 Ml) 10 unit in 1,000 mls @ 12 mls/hr IV TITRATE RACH; Protocol Last Titration: 05/16/21 20:49 Dose: 166.5 munits/min, 999 mls/hr Documented by: Oxytocin/Lactated Ringer's (Pitocin In Lr 10 Units/1,000 Ml) 10 unit in 1,000 mls @ 500 mls/hr IV .CONTINUOUS RACH Last Admin: 05/16/21 21:07 Dose: 999 mls/hr Documented by: Lactated Ringer's (Ringers, Lactated) 1,000 mls @ 40 mls/hr IV ASDIRECTED RACH Last Admin: 05/16/21 17:30 Dose: 40 mls/hr Documented by: Nalbuphine HCl (Nalbuphine 10 Mg/1 Ml Vial) 10 mg IVPUSH Q2H PRN PRN Reason: Pain Ondansetron HCl (Ondansetron 4 Mg/2 Ml Sdv) 4 mg IVPUSH Q4H PRN PRN Reason: Nausea/Vomiting Sodium Chloride (Sodium Chloride 0.9% 10 Ml Syringe) 10 ml FLUSH ASDIRECTED PRN PRN Reason: Keep Vein Open - Interaction Disposition, : [place] in Room with Family Interaction: Holding Feeding: Breastfed Infant; Nursed Well Support Person: - Recovery Exam Fundal Tone: Firm Fundal Level: At Umbilicus Fundal Placement: Midline Lochia Amount: Scant, Small Lochia Color: Rubra/Red Perineum Description: Other (see below) Other Perinuem Description: 2nd deg laceration with repair Episiotomy/Laceration: Approximated Bladder Status: Voiding - Exam General: Alert, Oriented, Cooperative GI/Abdominal Exam: Soft, Non-Tender - Problem List & Annotations (1) 39 weeks gestation of SNOMED Code(s): 53247324 Code(s): Z3A.39 - 39 WEEKS GESTATION OF Status: Acute (2) Pyelectasis of fetus on ultrasound SNOMED Code(s): 595993864 Code(s): O35.8XX0 - MATERNAL CARE FOR OTH ABNORMALITY AND DAMAGE, UNSP Status: Acute (3) Vacuum-assisted vaginal delivery SNOMED Code(s): 56250906254586647 Code(s): Z37.9 - OUTCOME OF DELIVERY, UNSPECIFIED Status: Acute - Problem List Review Problem List Initiated/Reviewed/Updated: Yes - My Orders Last 24 Hours: My Active Orders 05/17/21 09:00 Hydroxychloroquine [Plaquenil] 400 mg PO DAILY 05/17/21 22:53 Heat Therapy [OM.PC] PRN - Assessment Assessment:: PPD#2 - Plan Plan:: * Routine cares * Breast feeding currently * Continue home Plaquenil for RA diagnosis * Discharge home today
--- NOTE | 2021-05-18 03:16 | PCM.DCSUM1 ---
Discharge Summary - Discharge Data Discharge Date: 05/18/21 Discharge Disposition: Home, Self-Care 01 Condition: Good - Referral to Home Health Primary Care Physician: Whitney Vasquez NP - Discharge Diagnosis/Problem(s) (1) 39 weeks gestation of SNOMED Code(s): 44404206 ICD Code: Z3A.39 - 39 WEEKS GESTATION OF Status: Acute (2) Pyelectasis of fetus on ultrasound SNOMED Code(s): 097801659 ICD Code: O35.8XX0 - MATERNAL CARE FOR OTH ABNORMALITY AND DAMAGE, UNSP Status: Acute (3) Vacuum-assisted vaginal delivery SNOMED Code(s): 68621303821415079 ICD Code: Z37.9 - OUTCOME OF DELIVERY, UNSPECIFIED Status: Acute - Patient Summary/Data Complications: None Consults: None Recommended Follow-up Testing/Procedures: Follow up in 3 weeks for check Hospital Course: 30 y/o at 39 0/7 wks who presented for IOL. Done with pitocin and AROM. Progressed well to complete dilation and underwent an uncomplicated . See delivery note. did well and was discharged home on PPD#2 - Patient Instructions Diet: Regular Diet as Tolerated Activity: As Tolerated Activity, Other: Pelvic rest for 6 weeks Driving: May Drive Today Showering/Bathing: May Shower Showering/Bathing, Other: May Bathe Notify Provider of: Fever, Increased Pain, Swelling and Redness, Drainage, Nausea and/or Vomiting - Discharge Plan *PRESCRIPTION DRUG MONITORING PROGRAM REVIEWED*: No *COPY OF PRESCRIPTION DRUG MONITORING REPORT IN PATIENT JEANINE: No Home Medications: Home Meds Vits #93/Iron Fum/FA [ Formula Tablet] 1 each PO DAILY 09/10/19 [History] Docusate Sodium [Colace] 100 mg PO BID PRN cap 09/13/19 [Rx] Hydroxychloroquine [Plaquenil] 200 mg PO DAILY 05/16/21 [History] Ibuprofen [Motrin] 600 mg PO Q4H PRN tablet 05/18/21 [Rx] Patient Handouts: Tips for a Good Latch, [id number], Care After Vaginal Delivery, Steps to Quit Smoking Referrals: Nga Juarez MD [Physician] - (3 weeks for check ) - Discharge Summary/Plan Comment DC Time >30 min.: No - Patient Data Vitals - Most Recent: Last Vital Signs Temp 36.6 C 05/17/21 20:31 Pulse 79 05/17/21 20:31 Resp 17 05/17/21 20:31 BP 119/71 05/17/21 20:31 Pulse Ox 98 05/17/21 20:31 Weight - Most Recent: 121.563 kg I&O - Last 24 hours: Intake & Output 05/17/21 05/17/21 05/18/21 14:59 22:59 06:59 Intake Total 120 Balance 120 Med Orders - Current: Current Medications Acetaminophen (Acetaminophen 325 Mg Tab) 650 mg PO Q4H PRN PRN Reason: mild pain or fever Last Admin: 05/17/21 15:44 Dose: 650 mg Documented by: Benzocaine/Menthol (Benzocaine/Menthol 20%-0.5% [place] 56 Gm Canister) 0 gm TOP ASDIRECTED PRN PRN Reason: Perineal Comfort Measure Last Admin: 05/16/21 23:30 Dose: 1 can Documented by: Docusate Sodium (Docusate Sodium 100 Mg Cap) 100 mg PO BID PRN PRN Reason: Constipation Last Admin: 05/17/21 07:59 Dose: 100 mg Documented by: Hydroxychloroquine Sulfate (Hydroxychloroquine 200 Mg Tab) 400 mg PO DAILY RACH Last Admin: 05/17/21 16:15 Dose: Not Given Documented by: Ibuprofen (Ibuprofen 600 Mg Tab) 600 mg PO Q4H PRN PRN Reason: Mild pain or fever Last Admin: 05/17/21 21:44 Dose: 600 mg Documented by: Fredo Cobrin (Fredo Corbin Medicated Pads 40/Jar) 1 pad TOP ASDIRECTED PRN PRN Reason: Perineal Comfort Measure Last Admin: 05/16/21 23:31 Dose: 1 tub Documented by: Discontinued Medications Acetaminophen (Acetaminophen 325 Mg Tab) 650 mg PO Q6H PRN PRN Reason: Pain Last Admin: 05/16/21 17:01 Dose: 650 mg Documented by: Diphenhydramine HCl (Diphenhydramine 50 Mg/Ml Sdv) 25 mg IVPUSH Q6H PRN PRN Reason: pruritis Ephedrine Sulfate (Ephedrine 50 Mg/Ml Sdv) 5 mg IVPUSH ASDIRECTED PRN PRN Reason: Hypotension Last Admin: 05/16/21 17:37 Dose: 5 mg Documented by: Fentanyl (Fentanyl 100 Mcg/2 Ml Sdv) 100 mcg EPIDUR Q3H PRN PRN Reason: Pain Last Admin: 05/16/21 15:45 Dose: 100 mcg Documented by: Fentanyl/Bupivacaine HCl (Bupivacaine/Fentanyl/Ns 100 Ml Bag) 100 ml EPIDUR ASDIRECTED PRN PRN Reason: Pain Last Admin: 05/16/21 15:46 Dose: 100 ml Documented by: Oxytocin/Lactated Ringer's (Pitocin In Lr 10 Units/1,000 Ml) 10 unit in 1,000 mls @ 12 mls/hr IV TITRATE RACH; Protocol Last Titration: 05/16/21 20:49 Dose: 166.5 munits/min, 999 mls/hr Documented by: Oxytocin/Lactated Ringer's (Pitocin In Lr 10 Units/1,000 Ml) 10 unit in 1,000 mls @ 500 mls/hr IV .CONTINUOUS RACH Last Admin: 05/16/21 21:07 Dose: 999 mls/hr Documented by: Lactated Ringer's (Ringers, Lactated) 1,000 mls @ 40 mls/hr IV ASDIRECTED RACH Last Admin: 05/16/21 17:30 Dose: 40 mls/hr Documented by: Nalbuphine HCl (Nalbuphine 10 Mg/1 Ml Vial) 10 mg IVPUSH Q2H PRN PRN Reason: Pain Ondansetron HCl (Ondansetron 4 Mg/2 Ml Sdv) 4 mg IVPUSH Q4H PRN PRN Reason: Nausea/Vomiting Sodium Chloride (Sodium Chloride 0.9% 10 Ml Syringe) 10 ml FLUSH ASDIRECTED PRN PRN Reason: Keep Vein Open
[2021-05-18] MEDS: Hydroxychloroquine 200 MG Tab PO SCH (09:15)
== END 2021-05-18 09:04 | disposition home or self-care (01) | DRG 560 ==
LOC: JD.OB 07:26 → OBSVTOIN 20:48 → JD.OB 20:49
PROVIDERS: ADMIT Obstetrics & Gynecology; ATTEND Obstetrics & Gynecology
PROC: 10D07Z6 Extraction of Products of Conception, Vacuum, Via Natural or Artificial Opening (ICD-10-PCS; principal; 2021-05-16)
PROC: 10907ZC Drainage of Amniotic Fluid, Therapeutic from Products of Conception, Via Natural or Artificial Opening (ICD-10-PCS; 2021-05-16)
PROC: 0KQM0ZZ Repair Perineum Muscle, Open Approach (ICD-10-PCS; 2021-05-16)
PROC: 3E033VJ Introduction of Other Hormone into Peripheral Vein, Percutaneous Approach (ICD-10-PCS; 2021-05-16)
PROC: 3E0R3BZ Introduction of Anesthetic Agent into Spinal Canal, Percutaneous Approach (ICD-10-PCS; 2021-05-16)
PROC: 00HU33Z Insertion of Infusion Device into Spinal Canal, Percutaneous Approach (ICD-10-PCS; 2021-05-16)
DX: O99.344 Other mental disorders complicating childbirth (principal); Z37.0 Single live birth; F41.9 Anxiety disorder, unspecified; O77.0 Labor and delivery complicated by meconium in amniotic fluid; O70.1 Second degree perineal laceration during delivery; Z20.822 Contact with and (suspected) exposure to COVID-19; Z3A.39 39 weeks gestation of pregnancy; Z90.49 Acquired absence of other specified parts of digestive tract; Z86.16 Personal history of COVID-19
CPT/HCPCS: 01967; 36415; 51701; 59025; 59409; 85027; 86592; 86803; 86850; 86900; 86901; A9270-GY; J2590; J3010; J3490; J7120; U0002

== ENCOUNTER 2021-10-23 14:49 | Emergency (ER) | payer BC ==
[2021-10-23] MEDS ORDERED: HYDROmorphone 1 MG/ML Syringe IVPUSH STA (15:27)
[2021-10-23] MEDS ORDERED: Ondansetron 4 MG/2 ML SDV IVPUSH ONE (15:27)
[2021-10-23] MEDS ORDERED: Sodium Chloride 0.9% 10 ML Syringe FLUSH PRN (15:27)
[2021-10-23] MEDS ORDERED: Sodium Chloride 0.9% 1,000 ML IV SCH (15:30)
--- NOTE | 2021-10-23 15:33 | EDM.PDOC ---
ED HPI GENERAL MEDICAL PROBLEM - General Chief Complaint: Abdominal Pain Stated Complaint: ABD PAIN\HEADACHE Time Seen by Provider: 10/23/21 15:11 Source of Information: Reports: Patient, RN Notes Reviewed History Limitations: Reports: No Limitations - History of Present Illness INITIAL COMMENTS - FREE TEXT/NARRATIVE: Patient is a 30-year-old female who presents to the ER for her nausea/vomiting and right upper quadrant abdominal pain. States that she has been having issues with this, for a couple months now but today she had associated nausea and vomiting so much that she cannot keep anything down for food or fluids at all. She was able to keep down handful of pistachios, chandni cookies and 7-Up but besides this she has not really eaten or drink much of anything today. States that the pain is sharp, and feels hot. Nothing seems to really make it worse or better, is just there. Notes some pain that radiates up into her right shoulder and upper back as well. Also is having a headache and states that she has a history of migraine headaches. Patient has had her appendix taken out but still retains her gallbladder. Notes that her mother has issues with gallbladder in the past, and she also has a family history of thyroid issues. Not having any fevers or chills, cough or shortness of breath. States that she is having nausea/vomiting, and some loose stools for the last few days as well. States that the loose stools seemed to resolve today. States she just feels generally bloated as well. Epigastric Pain Score (Numeric/FACES): 10 - Related Data Allergies Allergy/AdvReac Type Severity Reaction Status Date / Time No Known Allergies Allergy Verified 10/23/21 15:14 Home Meds: Home Meds Hydroxychloroquine [Plaquenil] 400 mg PO DAILY 05/16/21 [History] Metoclopramide HCl 10 mg PO QID PRN #20 tablet 10/23/21 [Rx] norgestimate-ethinyl estradioL [[place] 28 Tablet] 1 tab PO DAILY 10/23/21 [History] Past Medical History HEENT History: Reports: None Cardiovascular History: Reports: None Respiratory History: Reports: None Gastrointestinal History: Reports: None, Other (See Below) Other Gastrointestinal History: Ladd esophagus, benign neoplasm of colon Genitourinary History: Reports: None 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: Musculoskeletal History: Reports: Arthritis Neurological History: Reports: Migraines Psychiatric History: Reports: Anxiety Endocrine/Metabolic History: Reports: Obesity/BMI 30+ Hematologic History: Reports: None Immunologic History: Reports: None Oncologic (Cancer) History: Reports: None Dermatologic History: Reports: None - Infectious Disease History Infectious Disease History: Reports: None, Other (See Below) Other Infectious Disease History: + covid August 2020 with symptos, + covid Dec 2020 without smptoms - Past Surgical History Head Surgeries/Procedures: Reports: None HEENT Surgical History: Reports: Myringotomy w Tube(s), Oral Surgery, Tonsillectomy Other HEENT Surgeries/Procedures: wisdom teeth extraction 2008 GI Surgical History: Reports: Appendectomy, Colonoscopy, EGD Other GI Surgeries/Procedures: Barrets esophagitis Social & Family History - Family History Family Medical History: No Pertinent Family History - Caffeine Use Caffeine Use: Reports: Coffee, Soda ED ROS GENERAL - Review of Systems Review Of Systems: Comprehensive ROS is negative, except as noted in HPI. ED EXAM, GI/ABD - Physical Exam Exam: See Below Exam Limited By: No Limitations General Appearance: Alert, WD/WN, No Apparent Distress Respiratory/Chest: No Respiratory Distress, Lungs Clear, Normal Breath Sounds, No Accessory Muscle Use, Chest Non-Tender Cardiovascular: Normal Peripheral Pulses, Regular Rate, Rhythm, No Edema GI/Abdominal Exam: Normal Bowel Sounds, Soft, Non-Tender, No Mass, Distended (feelings of being generally bloated) Extremities: Normal Inspection, Normal Capillary Refill Neurological: Alert, Oriented, Normal Cognition, No Motor/Sensory Deficits Psychiatric: Normal Affect, Normal Mood Skin Exam: Warm, Dry, Intact, Normal Color, No Rash Course - Vital Signs Last Recorded V/S: Last Vital Signs Temp 98.6 F 10/23/21 15:11 Pulse 76 10/23/21 15:11 Resp 18 10/23/21 15:11 BP 137/81 10/23/21 15:11 Pulse Ox 100 10/23/21 15:11 - Orders/Labs/Meds Orders: Active Orders 24 hr Category Date Time Status Peripheral IV Care [RC] . DIRECTED Care 10/23/21 15:28 Ordered COVID-19/FLU A+B [MOLEC] Stat Lab 10/23/21 15:28 Ordered UA W/MICROSCOPIC [URIN] Stat Lab 10/23/21 15:27 Ordered Sodium Chloride 0.9% [Normal Saline] 1,000 ml Med 10/23/21 15:30 Ordered IV ASDIRECTED Sodium Chloride 0.9% [Saline Flush] Med 10/23/21 15:27 Ordered 10 ml FLUSH ASDIRECTED PRN Peripheral IV Insertion Adult [OM.PC] Stat Oth 10/23/21 15:27 Ordered Medication Orders Sodium Chloride (Normal Saline) 1,000 mls @ 999 mls/hr IV ASDIRECTED RACH Last Admin: 10/23/21 15:50 Dose: 999 mls/hr Documented by: KIMBERLY Sodium Chloride (Sodium Chloride 0.9% 10 Ml Syringe) 10 ml FLUSH ASDIRECTED PRN PRN Reason: Keep Vein Open Last Admin: 10/23/21 15:51 Dose: 10 ml Documented by: KIMBERLY Labs: Laboratory Tests 10/23/21 10/23/21 10/23/21 Range/Units 15:39 15:39 15:39 WBC 6.94 (3.98-10.04) K/mm3 RBC 4.67 (3.98-5.22) M/mm3 Hgb 13.3 (11.2-15.7) gm/dl Hct 42.5 (34.1-44.9) % MCV 91.0 (79.4-94.8) fl MCH 28.5 (25.6-32.2) pg MCHC 31.3 L (32.2-35.5) g/dl RDW Std Deviation 44.7 (36.4-46.3) fL Plt Count 263 (182-369) K/mm3 MPV 9.8 (9.4-12.3) fl Neut % (Auto) 63.6 (34.0-71.1) % Lymph % (Auto) 26.9 (19.3-51.7) % [place] % (Auto) 7.8 (4.7-12.5) % Eos % (Auto) 1.3 (0.7-5.8) Baso % (Auto) 0.3 (0.1-1.2) % Neut # (Auto) 4.41 (1.56-6.13) K/mm3 Lymph # (Auto) 1.87 (1.18-3.74) K/mm3 [place] # (Auto) 0.54 H (0.24-0.36) K/mm3 Eos # (Auto) 0.09 (0.04-0.36) K/mm3 Baso # (Auto) 0.02 (0.01-0.08) K/mm3 Sodium 140 (136-145) mEq/L Potassium 4.2 (3.5-5.1) mEq/L Chloride 105 (98-107) mEq/L Carbon Dioxide 26 (21-32) mEq/L Anion Gap 13.2 (5-15) BUN 12 (7-18) mg/dL Creatinine 0.7 (0.55-1.02) mg/dL Est Cr Clr Drug Dosing 130.15 mL/min Estimated GFR (MDRD) > 60 (>60) mL/min BUN/Creatinine Ratio 17.1 (14-18) Glucose 92 (70-99) mg/dL Calcium 9.0 (8.5-10.1) mg/dL Total Bilirubin 0.2 (0.2-1.0) mg/dL AST 11 L (15-37) U/L ALT 27 (14-59) U/L Alkaline Phosphatase 66 (46-116) U/L C-Reactive Protein 0.5 (<1.0) mg/dL Total Protein 7.2 (6.4-8.2) g/dl Albumin 4.0 (3.4-5.0) g/dl Globulin 3.2 gm/dL Albumin/Globulin Ratio 1.3 (1-2) Lipase 74 (73-393) U/L TSH 3rd Generation 10.251 H (0.358-3.74) uIU/mL HCG, Qual (NEGATIVE) Urine Color Yellow (Yellow) Urine Appearance Clear (Clear) Urine pH 7.0 (5.0-8.0) Ur Specific [place] 1.020 (1.005-1.030) Urine Protein Negative (Negative) Urine Glucose (UA) Negative (Negative) Urine Ketones Negative (Negative) Urine Occult Blood 2+ H (Negative) Urine Nitrite Negative (Negative) Urine Bilirubin Negative (Negative) Urine Urobilinogen 0.2 (0.2-1.0) Ur Leukocyte Esterase Negative (Negative) 10/23/21 Range/Units 15:39 WBC (3.98-10.04) K/mm3 RBC (3.98-5.22) M/mm3 Hgb (11.2-15.7) gm/dl Hct (34.1-44.9) % MCV (79.4-94.8) fl MCH (25.6-32.2) pg MCHC (32.2-35.5) g/dl RDW Std Deviation (36.4-46.3) fL Plt Count (182-369) K/mm3 MPV (9.4-12.3) fl Neut % (Auto) (34.0-71.1) % Lymph % (Auto) (19.3-51.7) % [place] % (Auto) (4.7-12.5) % Eos % (Auto) (0.7-5.8) Baso % (Auto) (0.1-1.2) % Neut # (Auto) (1.56-6.13) K/mm3 Lymph # (Auto) (1.18-3.74) K/mm3 [place] # (Auto) (0.24-0.36) K/mm3 Eos # (Auto) (0.04-0.36) K/mm3 Baso # (Auto) (0.01-0.08) K/mm3 Sodium (136-145) mEq/L Potassium (3.5-5.1) mEq/L Chloride (98-107) mEq/L Carbon Dioxide (21-32) mEq/L Anion Gap (5-15) BUN (7-18) mg/dL Creatinine (0.55-1.02) mg/dL Est Cr Clr Drug Dosing mL/min Estimated GFR (MDRD) (>60) mL/min BUN/Creatinine Ratio (14-18) Glucose (70-99) mg/dL Calcium (8.5-10.1) mg/dL Total Bilirubin (0.2-1.0) mg/dL AST (15-37) U/L ALT (14-59) U/L Alkaline Phosphatase (46-116) U/L C-Reactive Protein (<1.0) mg/dL Total Protein (6.4-8.2) g/dl Albumin (3.4-5.0) g/dl Globulin gm/dL Albumin/Globulin Ratio (1-2) Lipase (73-393) U/L TSH 3rd Generation (0.358-3.74) uIU/mL HCG, Qual Negative (NEGATIVE) Urine Color (Yellow) Urine Appearance (Clear) Urine pH (5.0-8.0) Ur Specific [place] (1.005-1.030) Urine Protein (Negative) Urine Glucose (UA) (Negative) Urine Ketones (Negative) Urine Occult Blood (Negative) Urine Nitrite (Negative) Urine Bilirubin (Negative) Urine Urobilinogen (0.2-1.0) Ur Leukocyte Esterase (Negative) Meds: Medications Generic Name Dose Route Start Last Admin Trade Name Freq PRN Reason Stop Dose Admin Sodium Chloride 1,000 mls @ 999 mls/hr 10/23/21 15:30 10/23/21 15:50 Normal Saline IV 999 mls/hr ASDIRECTED RACH Administration Sodium Chloride 10 ml 10/23/21 15:27 10/23/21 15:51 Sodium Chloride 0.9% 10 Ml Syringe FLUSH 10 ml ASDIRECTED PRN Administration Keep Vein Open Discontinued Medications Generic Name Dose Route Start Last Admin Trade Name Freq PRN Reason Stop Dose Admin Hydromorphone HCl 1 mg 10/23/21 15:27 10/23/21 15:51 Hydromorphone 1 Mg/Ml Syringe IVPUSH 10/23/21 15:28 1 mg ONETIME STA Administration Iopamidol 100 ml 10/23/21 15:56 Iopamidol 612 Mg/Ml 100 Ml Bottle IVPUSH 10/23/21 15:57 ONETIME ONE Metoclopramide HCl 10 mg 10/23/21 16:45 10/23/21 17:03 Metoclopramide 10 Mg/2 Ml Sdv IVPUSH 10/23/21 16:46 10 mg ONETIME ONE Administration Ondansetron HCl 4 mg 10/23/21 15:27 10/23/21 15:52 Ondansetron 4 Mg/2 Ml Sdv IVPUSH 10/23/21 15:28 4 mg ONETIME ONE Administration - Re-Assessments/Exams Free Text/Narrative Re-Assessment/Exam: 10/23/21 15:32 Patient presents to the ER for the evaluation of her abdominal pain. We will go ahead and get a CT, and some basic labs for ongoing management. Patient be given some Dilaudid and Zofran for pain management and nausea management. Patient verbalized understanding of this plan. 10/23/21 17:43 Patient's labs have resulted, CBC, CMP are unremarkable, TSH is markedly elevated at 10.[address] demonstrated no acute abnormalities within the gallbladder or right upper quadrant. Patient was having ongoing issues with nausea but nursing states that she did vomit and did states she felt better after she vomited. We will likely have her follow-up with her regular care provider regarding the TSH results, send her home with some nausea meds. She could have viral gastroenteritis causing some issues at this time, no other abnormalities were appreciated on today's exams and labs. 10/23/21 19:13 The patient's right upper quadrant ultrasound demonstrates a gallbladder polyp measuring 5.5 mm but no gallbladder wall thickening or biliary duct dilatation was seen. I did go over these findings with our general surgeon on-call, Dr. Topete and he states this is something that can be observed and he can follow up with her in clinic if she would desire. For today's purposes there is no great etiology as to what is causing her abdomen pain other than a possible gastroenteritis or gastritis. We will try to treat her nausea have her stick to clear liquid diet for the next few days, and see if this helps relieve some of her symptoms she will have to follow-up with her primary care provider, Whitney Vasquez for the elevated TSH and ongoing management. Patient verbalized understanding. Departure - Departure Time of Disposition: 19:15 Disposition: Home, Self-Care 01 Condition: Good Clinical Impression: Upper abdominal pain, Polyp of gallbladder - Discharge Information *PRESCRIPTION DRUG MONITORING PROGRAM REVIEWED*: No *COPY OF PRESCRIPTION DRUG MONITORING REPORT IN PATIENT JEANINE: No Instructions: Abdominal Pain, Adult, [id number] Referrals: Whitney Vasquez DOSIMETRIST [Primary Care Provider] - Forms: ED Department Discharge Additional Instructions: You were evaluated in the ER today for your upper abdominal pain. Laboratory evaluation, CT and ultrasound were evaluated today's visit. Your ultrasound demonstrated a small gallbladder polyp measuring 5.5 mm, that will need to be observed but does not necessarily need any emergent management at this time. CT also demonstrated no focal abnormalities. Your laboratory evaluation was impressive for a markedly elevated TSH at 10.251, which would suggest that you are suffering from hypothyroidism. You will need to follow-up with Whitney Vasquez for ongoing management to get started on thyroid medications or to have this lab repeated and tracked. You been given a antinausea medication may take 1 tablet every 4-6 hours as needed for further nausea management. This medication was electronically sent to the [place] pharmacy located in the [facility] grocery store. I would recommend that you stick to a clear liquid diet over the next few days to see if this helps relieve some of your symptoms. You may advance to bland diet as tolerated. Dr. Steve Topete was consulted regarding the gallbladder polyp, and you may follow-up with him in clinic if you should desire. Please call [phone] to obtain an appointment with him for further management. Do not hesitate to return to the ER at any time if symptoms change or worsen. Thank you for allowing and choosing us to be involved in your healthcare needs. Sepsis Event Note (ED) - Evaluation Sepsis Screening Result: No Definite Risk - Focused Exam Vital Signs: Vital Signs Temp Pulse Resp BP Pulse Ox 10/23/21 15:11 98.6 F 76 18 137/81 100 - My Orders Last 24 Hours: My Active Orders 10/23/21 15:27 UA W/MICROSCOPIC [URIN] Stat Sodium Chloride 0.9% [Saline Flush] 10 ml FLUSH ASDIRECTED PRN Peripheral IV Insertion Adult [OM.PC] Stat 10/23/21 15:28 Peripheral IV Care [RC] . DIRECTED COVID-19/FLU A+B [MOLEC] Stat 10/23/21 15:30 Sodium Chloride 0.9% [Normal Saline] 1,000 ml IV ASDIRECTED - Assessment/Plan Last 24 Hours: My Active Orders 10/23/21 15:27 UA W/MICROSCOPIC [URIN] Stat Sodium Chloride 0.9% [Saline Flush] 10 ml FLUSH ASDIRECTED PRN Peripheral IV Insertion Adult [OM.PC] Stat 10/23/21 15:28 Peripheral IV Care [RC] . DIRECTED COVID-19/FLU A+B [MOLEC] Stat 10/23/21 15:30 Sodium Chloride 0.9% [Normal Saline] 1,000 ml IV ASDIRECTED
[2021-10-23] MEDS ORDERED: Iopamidol 612 MG/ML 100 ML Bottle IVPUSH ONE (15:56)
[2021-10-23] MEDS ORDERED: Metoclopramide 10 MG/2 ML SDV IVPUSH ONE (16:45)
--- NOTE | 2021-10-23 17:20 | CT ---
CT abdomen and pelvis Technique: Multiple axial sections were obtained from above the dome of the diaphragm inferiorly through the pubic symphysis. Intravenous contrast as well as oral contrast was utilized. Oral contrast remains within the stomach. Delayed images were also obtained through the bladder. Reconstructed coronal and sagittal images were obtained. Comparison: No prior CT abdomen or pelvis study is available. Findings: Visualized lung bases show nothing acute. Liver contains no focal parenchymal abnormality. Spleen size is normal. Adrenal glands show no nodule. Pancreas shows no discrete abnormality. Gallbladder shows no calcified gallstones. Kidneys show symmetric contrast enhancement. No hydronephrosis or mass is seen within the kidneys. Abdominal aorta shows no aneurysm. No retroperitoneal adenopathy or mesenteric abnormalities are seen. Surgical clips are seen off the tip of the cecum. Appendix is not visualized. No pelvic mass or adenopathy is seen. Delayed images show contrast within the distal ureters as well as contrast within the bladder. Bone window settings were reviewed which appear within normal limits for the patient's age. Impression: 1. Nothing acute is appreciated on CT study of the abdomen and pelvis. Diagnostic code #2
--- NOTE | 2021-10-23 18:58 | US ---
Limited abdominal ultrasound: Multiple real-time images of the upper right abdomen were obtained. Comparison: No prior abdominal ultrasound is available, recent abdominal and pelvic CT study performed earlier on the same day (4:44 PM). Findings: Liver shows no focal abnormality. Gallbladder contains no shadowing gallstones. There is a small gallbladder polyp measuring 5.5 mm. No gallbladder wall thickening or biliary duct dilatation is seen. Right kidney shows no hydronephrosis or mass. Right kidney has a length of 12.2 cm. Proximal aorta shows no aneurysm. Pancreas shows no discrete abnormality. Inferior vena cava is patent. Main portal vein shows normal hepatopedal flow. Impression: 1. Small gallbladder polyp. 2. Other portions of the right upper quadrant abdominal ultrasound appear unremarkable. Diagnostic code #2
[2021-10-23 19:53] LABS: CORONAVIRUS COVID-19 NAA NEGATIVE (NEGATIVE)
== END 2021-10-23 19:45 | disposition home or self-care (01) ==
LOC: JD.ED 14:49
DX: K82.4 Cholesterolosis of gallbladder (principal); E66.9 Obesity, unspecified; Z68.33 Body mass index [BMI] 33.0-33.9, adult; Z20.822 Contact with and (suspected) exposure to COVID-19
CPT/HCPCS: 0240U; 36415; 74177; 76705; 80053; 81001; 83690; 84443; 84703; 85025; 86140; 96374; 96375; 99284; J1170; J2405; J2765; J7030

== ENCOUNTER 2024-04-22 22:07 | Emergency (ER) | payer BC ==
[2024-04-22] MEDS: Sodium Chloride 0.9% 1,000 ML IV ONE (23:04)
[2024-04-22] MEDS: Metoclopramide 10 MG/2 ML SDV IVPUSH ONE (23:05)
[2024-04-22] MEDS: Ketorolac 15 MG/ML SDV IVPUSH ONE (23:47)
== END 2024-04-23 01:19 | disposition home or self-care (01) ==
LOC: JD.ED 22:07
DX: G43.909 Migraine, unspecified, not intractable, without status migrainosus (principal); E66.9 Obesity, unspecified; F17.210 Nicotine dependence, cigarettes, uncomplicated; Z79.899 Other long term (current) drug therapy; Z90.49 Acquired absence of other specified parts of digestive tract; Z68.29 Body mass index [BMI] 29.0-29.9, adult
CPT/HCPCS: 96361; 96374; 96375; 99283; J1885; J2765; J7030; 99284